=== PATIENT | female | born 1945 | race Caucasian/White ===

== ENCOUNTER 2018-02-28 12:27 | Inpatient (IN) ==
[2018-02-28 13:43] LABS: Basophils % 0.4 %; Eosinophils % 0.2 %; Hematocrit 40.9 % (35.3-44.9); Immature Granulocytes % 0.2 % (0-4); Lymphocytes # 1.3 K/mcL (0.6-4.6); Lymphocytes % 15.8 %; Mean Corpuscular HGB Conc 34.2 g/dL (31.6-35.5); Mean Corpuscular Hemoglobin 28.4 pg (28.0-33.3); Mean Platelet Volume 8.4 fL (9.4-12.4); Monocytes # 1.1 K/mcL (0.0-1.3); Monocytes % 13.5 %; Neutrophils # 5.6 K/mcL (1.6-8.9); Platelet Count 399 K/mcL (140-400); Red Blood Count 4.93 M/mcL (3.82-4.97); Red Cell Distribution Width 14.9 % (11.5-14.5); Segmented Neutrophils % 69.9 %
[2018-02-28 14:01] LABS: Alanine Aminotransferase 7 Units/L (7-52); Albumin 3.2 g/dL (3.5-5.7); Albumin/Globulin Ratio 1.2 (1.1-2.2); Alkaline Phosphatase 78 Units/L (34-104); Aspartate Amino Transferase 11 Units/L (13-39); BUN/Creatinine Ratio 22 (6-26); Bilirubin,Direct 0.1 mg/dL (0.0-0.2); Bilirubin,Indirect 0.4 mg/dL (0.0-1.2); Bilirubin,Total 0.5 mg/dL (0.3-1.0); Blood Urea Nitrogen 17 mg/dL (8-23); Calcium 8.6 mg/dL (8.6-10.3); Carbon Dioxide 25 mEq/L (23-29); Chloride 104 mEq/L (98-107); Globulin 2.7 g/dL (2.4-3.5); Glucose 100 mg/dL (70-105); Lipase 5 Units/L (11-82); Osmolality,Calculated 286 (280-300); Potassium 3.1 mEq/L (3.5-5.1); Sodium 137 mEq/L (136-145); Total Protein 5.9 g/dL (6.4-8.9); eGFR For Non-African Americans > 60 (> 60)
[2018-02-28] MEDS ORDERED: *HR* FentaNYL (PF) 100 MCG/2 ML VIAL IVP ONE ×2 (15:37→19:43)
[2018-02-28] MEDS ORDERED: 0.9 % Sodium Chloride 1,000 ML IVC ONE (15:37)
[2018-02-28] MEDS ORDERED: Ondansetron 4 MG/2 ML VIAL IVP ONE (15:37)
--- NOTE | 2018-02-28 15:44 | Emergency Department Note ---
Disposition Clinical Impression: Large bowel obstruction, Hypokalemia Disposition: Admitted As Inpatient Condition: Good Abdominal Pain HPI - General Chief Complaint: ED Abdominal Pain Stated Complaint: vomiting Time Seen by Provider: 02/28/18 15:23 Source: patient Mode of arrival: private vehicle Limitations: no limitations Nursing Notes Reviewed: Yes Vital Signs Reviewed: Yes - History of Present Illness HPI Narrative: 72-year-old female prior history of hypertension, arthritis with a prior surgical history of cholecystectomy, appendectomy, hysterectomy, bowel resection secondary to perforation from colonoscopy who presents to the ER with a chief complaint of nausea vomiting and abdominal pain. Patient reports her pain started roughly 2 weeks ago. She localizes it to her umbilicus and right side. States that it hurt for 4-5 days when she was having diarrhea and vomiting and started to improve. She reports it worsened and over the last 5 days she has had bilious emesis as well as no bowel movement. She reports that she is unable to keep down her medications. States she has had no appetite. No history of bowel obstruction in the past. No fevers. No dysuria or hematuria. No chest pain or shortness of breath. No other complaints. Pt Subjective Complaint: abdominal pain Onset (ago): week(s) Consistency: intermittent Location: RLQ, suprapubic Pain Severity: moderate Pain Scale: 0 Quality: cramping Radiation: none Migration to: no migration Improves with: nothing Worsens with: nothing Associated symptoms: Reports: nausea, vomiting, diarrhea. Denies: fever, dysuria, hematuria Treatments prior to arrival: none - Related Data Allergies Allergy/AdvReac Type Severity Reaction Status Date / Time No Known Allergies Allergy Verified 08/30/15 13:20 All systems ED: reviewed and negative except as stated. Constitutional: Denies: fever Cardiovascular: Denies: chest pain Respiratory: Denies: dyspnea Gastrointestinal: Reports: abdominal pain, nausea, vomiting. Denies: diarrhea, constipation Genitourinary: Denies: dysuria, hematuria Abdominal Pain PMH - Past Medical History Medical history: Reports: arthritis, hypertension Female Surgical History: Reports: appendectomy, cholecystectomy, hysterectomy Psychiatric history: Reports: no psych history - Social History Smoking status: Never smoker Physical Exam - General Limitations: no limitations General appearance: alert, in no apparent distress - Head Head exam: atraumatic, normocephalic - Eye Eye exam: Present: normal appearance - ENT ENT exam: normal exam - Neck Neck exam: Present: normal inspection - Chest Chest inspection: Present: normal inspection, symmetric chest wall rise - Respiratory Respiratory exam: Present: normal lung sounds bilaterally - Cardiovascular Cardiovascular exam: Present: regular rate, normal rhythm, normal heart sounds - Abdominal Exam Abdominal exam: Present: soft, tenderness (Patient has periumbilical as well as suprapubic and right lower quadrant tenderness.), distention. Absent: guarding , rigidity - Extremities Exam Extremities exam: Present: normal inspection, full ROM - Expanded Upper Extremity Exam Shoulder exam: Present: normal inspection, full ROM Arm exam: Present: normal inspection, full ROM Elbow exam: Present: normal inspection, full ROM Forearm/Wrist exam: Present: normal inspection, full ROM Hand exam: Present: normal inspection, full ROM - Expanded Lower Extremity Exam Hip/Pelvis exam: Present: normal inspection, full ROM Upper leg exam: Present: normal inspection, full ROM Knee exam: Present: normal inspection, full ROM Lower leg exam: Present: normal inspection, full ROM Ankle exam: Present: normal inspection, full ROM Foot/toe exam: Present: normal inspection, full ROM - Skin Skin exam: Present: warm, dry Course Course Narrative: Patient seen and examined. Vital signs reviewed. concern for potential bowel obstruction given her symptomatology. Labs reviewed prior to evaluation. Plan to add on coagulation studies, CT abdomen and pelvis as well as fluids, analgesics and antiemetics. - Reevaluation(s) Reevaluation #1: Discussed results of imaging labs with the patient. Discussed that she would need an NG tube for decompression. Patient in agreement. Plan to speak with surgery. - Consultations Consultation #1: I spoke with the on-call surgeon Dr. Braden. Discussed the patient's history, exam, labs, imaging as well as current interventions. He reviewed the imaging and will be down to see the patient. Time: 17:06 Vital Signs Temperature 98.6 F 02/28/18 12:29 Pulse Rate 89 02/28/18 12:29 Respiratory Rate 16 02/28/18 12:29 Blood Pressure 146/86 02/28/18 12:29 O2 Sat by Pulse Oximetry 97 02/28/18 12:29 Temperature 98.6 F 02/28/18 12:29 Pulse Rate 125 02/28/18 21:20 Respiratory Rate 18 02/28/18 21:20 Blood Pressure 143/99 02/28/18 21:20 O2 Sat by Pulse Oximetry 94 02/28/18 21:21 Oxygen Delivery Oxygen Delivery Room Air Abdominal Pain - MDM Narrative Medical decision making narrative: 72-year-old female with abdominal pain and emesis and constipation for several days. Extensive prior surgical history. Imaging reviewed revealing large bowel obstruction. No acute derangements and labs with the exception of mild hypokalemia which was replaced here. Case discussed with surgery. NG tube ordered. Admit for further management. - Lab Data Lab results reviewed: Yes I reviewed the patient's lab results. Result diagrams: 02/28/18 13:16 02/28/18 13:16 Lab Results 02/28/18 02/28/18 02/28/18 Range/Units 13:16 13:16 13:16 WBC 8.0 (4.3-11.1) K/mcL RBC 4.93 (3.82-4.97) M/mcL Hgb 14.0 (11.5-15.4) g/dL Hct 40.9 (35.3-44.9) % MCV 83.0 (83.0-100.0) fL MCH 28.4 (28.0-33.3) pg MCHC 34.2 (31.6-35.5) g/dL RDW 14.9 H (11.5-14.5) % Plt Count 399 (140-400) K/mcL MPV 8.4 L (9.4-12.4) fL Immature Gran % 0.2 (0-4) % Seg Neutrophils % 69.9 % Lymphocytes % 15.8 % Monocytes % 13.5 % Eosinophils % 0.2 % Basophils % 0.4 % Neutrophils # 5.6 (1.6-8.9) K/mcL Lymphocytes # 1.3 (0.6-4.6) K/mcL Monocytes # 1.1 (0.0-1.3) K/mcL Eosinophils # 0.0 (0.0-0.6) K/mcL Basophils # 0.0 (0.0-0.2) K/mcL PT 14.3 H (9.4-12.1) Seconds INR 1.3 Sodium 137 (136-145) mEq/L Potassium 3.1 L (3.5-5.1) mEq/L Chloride 104 (98-107) mEq/L Carbon Dioxide 25 (23-29) mEq/L BUN 17 (8-23) mg/dL Creatinine 0.77 (0.60-1.20) mg/dL Est GFR ( Amer) > 60 (> 60) Est GFR (Non-Af Amer) > 60 (> 60) BUN/Creatinine Ratio 22 (6-26) Glucose 100 (70-105) mg/dL Calculated Osmolality 286 (280-300) Calcium 8.6 (8.6-10.3) mg/dL Total Bilirubin 0.5 (0.3-1.0) mg/dL Direct Bilirubin 0.1 (0.0-0.2) mg/dL Indirect Bilirubin 0.4 (0.0-1.2) mg/dL AST 11 L (13-39) Units/L ALT 7 (7-52) Units/L Alkaline Phosphatase 78 (34-104) Units/L Serum Total Protein 5.9 L (6.4-8.9) g/dL Albumin 3.2 L (3.5-5.7) g/dL Globulin 2.7 (2.4-3.5) g/dL Albumin/Globulin Ratio 1.2 (1.1-2.2) Lipase 5 L (11-82) Units/L - Radiology Data Radiology results reviewed: Yes I reviewed the patient's radiology results. Abdomen/Pelvis CT 02/28/18 15:24 IMPRESSION: 1. Large bowel obstruction with a transition point noted near the sigmoid colon. This may be related to a stricture versus mass. 2. Hiatal hernia. D/ / 02/28/2018 17:30:13 Gabo Westbrook MD / [facility] Interpreting Provider: Gabo Westbrook MD Attestation Statement - Attestation Attestation: I examined this patient and my medical decision-making was reviewed with the Resident Physician. I agree with the documented findings, disposition and treatment plan as described except to the extent set forth below. Patient presents with bowel obstruction. She is vomiting. She has no findings of peritonitis at this time. We did attempt to place an NG tube but due to her significant gag reflex this was not obtainable. We did attempt multiple topical analgesics as well as anxyolysis. She could still not tolerate NG placement. Surgical consultation was placed. The patient will be admitted for further management.
[2018-02-28 15:55] LABS: INR 1.3; Prothrombin Time 14.3 Seconds (9.4-12.1)
[2018-02-28] MEDS ORDERED: Tetracaine/Benzocaine/Butamben 200MG/SPRAY (100SPY/BOT) MM ONE (17:01)
[2018-02-28] MEDS ORDERED: GI Cocktail 40 ML EACH PO ONE (17:54)
[2018-02-28] MEDS ORDERED: Albuterol 2.5 MG/3 ML NEBULIZER IH ONE (17:57)
[2018-02-28] MEDS ORDERED: *HR* LORazepam 2 MG/ML VIAL ONE (18:21)
[2018-02-28] MEDS ORDERED: 0.9 % Sodium Chloride 1,000 ML IVC SCH (23:15)
[2018-02-28] MEDS: Ondansetron 4 MG/2 ML VIAL IVP PRN (23:46)
[2018-02-28] MEDS: *HR* OxyCODONE/APAP 10/325 TABLET PO PRN (23:46)
[2018-03-01] MEDS: *HR* OxyCODONE/APAP 10/325 TABLET PO PRN ×2 (00:02→06:07)
[2018-03-01] MEDS: *HR* OxyCODONE Oral Soln 5 MG/5 ML UD.LIQ PO PRN ×2 (02:53→12:05)
[2018-03-01] MEDS: Ondansetron 4 MG/2 ML VIAL IVP PRN ×2 (05:47→11:05)
[2018-03-01 07:31] LABS: Basophils % 0.2 %; Eosinophils % 0.2 %; Hematocrit 40.7 % (35.3-44.9); Immature Granulocytes % 0.7 % (0-4); Lymphocytes # 1.3 K/mcL (0.6-4.6); Lymphocytes % 15.2 %; Mean Corpuscular HGB Conc 34.4 g/dL (31.6-35.5); Mean Corpuscular Hemoglobin 28.7 pg (28.0-33.3); Mean Corpuscular Volume 83.4 fL (83.0-100.0); Mean Platelet Volume 8.2 fL (9.4-12.4); Monocytes # 1.2 K/mcL (0.0-1.3); Monocytes % 14.1 %; Neutrophils # 5.9 K/mcL (1.6-8.9); Platelet Count 383 K/mcL (140-400); Red Blood Count 4.88 M/mcL (3.82-4.97); Red Cell Distribution Width 15.3 % (11.5-14.5); Segmented Neutrophils % 69.6 %
--- NOTE | 2018-03-01 07:43 | General Surgery Consult Note ---
<Chase Reyes - Last Filed: 03/01/18 08:45> Date of Encounter: 03/01/18 Time of Encounter: 18:00 Assessment and Plan (1) Large bowel obstruction Current Visit: Yes Status: Acute - Gastrograffin enema planned for tomorrow morning if patient does not improve overnight. - NPO - IVF - Serial abdominal exams - Pain management per primary teams reccomendations History of Present Illness History of present illness: Ms. Handley is a 72 year old female presenting with abdominal pain, nausea, vomiting, and abdominal distension for the past 24 hours. Her history is significant for a colon resection, where 30% of her colon was resected due to colon perforation during a routine colonoscopy. Pain is generalized in the abdomen. Patient reports last gas passed was 1-2 days ago, and bowel movement before incident was watery. Was offered NG tube to relieve symptoms, but was refused. CT abdomen at ED shows large bowel obstruction near the sigmoid colon. Past Med Surg Social Fam HX - Past Medical History Medical history: arthritis, hypertension Psychiatric history: no psych history - Past Surgical History Surgical History: appendectomy, cholecystectomy, hysterectomy Additional surgical history: tubalplasty, perforated bowel repair, bowel resection. - Social History Smoking Status: Never smoker Smokeless Tobacco Status: No Alcohol use: occasionally Drug use: none Medications and Allergies HYDROcodone/Acet 7.5/325 mg [[place] 7.5-325 mg] 1 tab PO Q4H 02/28/18 [History] Meloxicam [Meloxicam] 15 mg PO DAILY PRN 02/28/18 [History] Metoprolol [Lopressor] 25 mg PO BID 02/28/18 [History] 3 Allergy/AdvReac Type Severity Reaction Status Date / Time No Known Allergies Allergy Verified 08/30/15 13:20 Review of Systems All systems PM: The remainder of the systems were reviewed and are negative - Constitutional as per HPI General Surgery Exam Initial Vital Signs Temp Pulse Resp BP Pulse Ox 98.6 F 89 16 146/86 97 02/28/18 12:29 02/28/18 12:29 02/28/18 12:29 02/28/18 12:29 02/28/18 12:29 - Abdomen Abdomen general surgery: Present: bowel sounds present, soft, non tender Exam Initial Vital Signs Temp Pulse Resp BP Pulse Ox 98.6 F 89 16 146/86 97 02/28/18 12:29 02/28/18 12:29 02/28/18 12:02/28/18 12:02/28/18 12:29 Results - Labs 03/01/18 07:11 03/01/18 07:11 Abnormal lab results RDW 14.9 % (11.5-14.5) H 02/28/18 13:16 MPV 8.4 fL (9.4-12.4) L 02/28/18 13:16 PT 14.3 Seconds (9.4-12.1) H 02/28/18 13:16 Potassium 3.1 mEq/L (3.5-5.1) L 02/28/18 13:16 AST 11 Units/L (13-39) L 02/28/18 13:16 Serum Total Protein 5.9 g/dL (6.4-8.9) L 02/28/18 13:16 Albumin 3.2 g/dL (3.5-5.7) L 02/28/18 13:16 Lipase 5 Units/L (11-82) L 02/28/18 13:16 All other labs normal. Consult Discharge Plan - Plan Referrals: Concha Rodriguez, DO [Primary Care Provider] - <Cristian Braden - Last Filed: 03/01/18 12:01> Date of Encounter: 02/28/18 Review of Systems All systems PM: The remainder of the systems were reviewed and are negative General Surgery Exam Initial Vital Signs Temp Pulse Resp BP Pulse Ox 98.6 F 89 16 146/86 97 02/28/18 12:02/28/18 12:02/28/18 12:02/28/18 12:29 02/28/18 12:29 Exam Initial Vital Signs Temp Pulse Resp BP Pulse Ox 98.6 F 89 16 146/86 97 02/28/18 12:29 02/28/18 12:02/28/18 12:02/28/18 12:29 02/28/18 12:29 Results - Labs 03/01/18 07:11 03/01/18 07:11 Abnormal lab results RDW 15.3 % (11.5-14.5) H 03/01/18 07:11 MPV 8.2 fL (9.4-12.4) L 03/01/18 07:11 PT 14.3 Seconds (9.4-12.1) H 02/28/18 13:16 Potassium 3.1 mEq/L (3.5-5.1) L 03/01/18 07:11 Carbon Dioxide 20 mEq/L (23-29) L 03/01/18 07:11 Glucose 120 mg/dL (70-105) H 03/01/18 07:11 Calcium 8.5 mg/dL (8.6-10.3) L 03/01/18 07:11 AST 11 Units/L (13-39) L 02/28/18 13:16 Serum Total Protein 5.9 g/dL (6.4-8.9) L 02/28/18 13:16 Albumin 3.2 g/dL (3.5-5.7) L 02/28/18 13:16 Lipase 5 Units/L (11-82) L 02/28/18 13:16 Diabetes panel 03/01/18 Range/Units 07:11 Sodium 138 (136-145) mEq/L Potassium 3.1 L (3.5-5.1) mEq/L Chloride 107 (98-107) mEq/L Carbon Dioxide 20 L (23-29) mEq/L BUN 17 (8-23) mg/dL Creatinine 0.76 (0.60-1.20) mg/dL Glucose 120 H (70-105) mg/dL Calcium 8.5 L (8.6-10.3) mg/dL Calcium panel 03/01/18 Range/Units 07:11 Calcium 8.5 L (8.6-10.3) mg/dL Pituitary panel 03/01/18 Range/Units 07:11 Sodium 138 (136-145) mEq/L Potassium 3.1 L (3.5-5.1) mEq/L Chloride 107 (98-107) mEq/L Carbon Dioxide 20 L (23-29) mEq/L BUN 17 (8-23) mg/dL Creatinine 0.76 (0.60-1.20) mg/dL Glucose 120 H (70-105) mg/dL Calcium 8.5 L (8.6-10.3) mg/dL Adrenal panel 03/01/18 Range/Units 07:11 Sodium 138 (136-145) mEq/L Potassium 3.1 L (3.5-5.1) mEq/L Chloride 107 (98-107) mEq/L Carbon Dioxide 20 L (23-29) mEq/L BUN 17 (8-23) mg/dL Creatinine 0.76 (0.60-1.20) mg/dL Glucose 120 H (70-105) mg/dL Calcium 8.5 L (8.6-10.3) mg/dL All other labs normal. - Attending Attestation I examined this patient and my medical decision-making was reviewed with the Resident Physician. I agree with the documented findings, disposition and treatment plan as described except to the extent set forth below. The patient was seen and evaluated with rest and in the emergency room. I personally reviewed the CAT scan films. She does have dilated colon and proximal small bowel loops. The transition point appears to be sigmoid colon. If indeed she had a sigmoid colectomy this would be the level of the anastomosis. If she is unable to pass any stool or flatus by tomorrow morning we will obtain a Gastrografin enema to assess the degree of stenosis. If she is completely obstructed Haider's procedure will be necessary. If she is not completely obstructed I may be able to use a colonoscope and decompressed proximal colon. Continue IV hydration. It is noted that the patient did not tolerate nasogastric tube placement and refused nasogastric tube Cristian Braden MD FACS
[2018-03-01 07:48] LABS: BUN/Creatinine Ratio 22 (6-26); Blood Urea Nitrogen 17 mg/dL (8-23); Calcium 8.5 mg/dL (8.6-10.3); Carbon Dioxide 20 mEq/L (23-29); Chloride 107 mEq/L (98-107); Glucose 120 mg/dL (70-105); Osmolality,Calculated 289 (280-300); Potassium 3.1 mEq/L (3.5-5.1); Sodium 138 mEq/L (136-145); eGFR For Non-African Americans > 60 (> 60)
--- NOTE | 2018-03-01 10:30 | General Surgery Progress Note ---
<Chase Reyes - Last Filed: 03/01/18 10:33> Date of Encounter: 03/01/18 Time of Encounter: 07:30 - Assessment and Plan (1) Large bowel obstruction Current Visit: Yes Status: Acute - reassess patient after gastrograffin enema - NPO - IVF - Serial abdominal exams - Continue pain management recommendations Subjective Patient reports: still having pain, no flatus, nausea, vomiting Narrative: Patient reports intense pain overnight and acute distress. She is also experiencing nauseau, vomiting, and distension. SHe rates her pain as a 6/10 and nonradiating. She still does not want to have an NG tube. Objective Vital Signs - Last 8 Hours Temp Pulse Resp BP Pulse Ox 03/01/18 07:45 98.9 F 104 18 144/83 92 Intake and Output 02/28/18 03/01/18 03/01/18 23:59 07:59 15:59 Intake Total 0 / 1100 0 / 0 Output Total 0 / 0 0 / 0 Balance 0 / 1100 0 / 0 Intake: Oral 0 / 0 0 / 0 Output: Urine 0 / 0 0 / 0 Other: # Voids 1 # Urine Diapers 1 - General physical appearance well developed, well nourished, severe distress - Respiratory normal expansion, normal respiratory effort - Cardiovascular Cardiovascular exam: Present: RRR - Abdomen Abdomen: Present: distended Abdominal Tenderness: diffusely - Neurologic CN 2-12 grossly intact - Psychiatric oriented to time, oriented to person, oriented to place - Labs 03/01/18 07:11 03/01/18 07:11 Diabetes panel 03/01/18 Range/Units 07:11 Sodium 138 (136-145) mEq/L Potassium 3.1 L (3.5-5.1) mEq/L Chloride 107 (98-107) mEq/L Carbon Dioxide 20 L (23-29) mEq/L BUN 17 (8-23) mg/dL Creatinine 0.76 (0.60-1.20) mg/dL Glucose 120 H (70-105) mg/dL Calcium 8.5 L (8.6-10.3) mg/dL Calcium panel 03/01/18 Range/Units 07:11 Calcium 8.5 L (8.6-10.3) mg/dL Pituitary panel 03/01/18 Range/Units 07:11 Sodium 138 (136-145) mEq/L Potassium 3.1 L (3.5-5.1) mEq/L Chloride 107 (98-107) mEq/L Carbon Dioxide 20 L (23-29) mEq/L BUN 17 (8-23) mg/dL Creatinine 0.76 (0.60-1.20) mg/dL Glucose 120 H (70-105) mg/dL Calcium 8.5 L (8.6-10.3) mg/dL Adrenal panel 03/01/18 Range/Units 07:11 Sodium 138 (136-145) mEq/L Potassium 3.1 L (3.5-5.1) mEq/L Chloride 107 (98-107) mEq/L Carbon Dioxide 20 L (23-29) mEq/L BUN 17 (8-23) mg/dL Creatinine 0.76 (0.60-1.20) mg/dL Glucose 120 H (70-105) mg/dL Calcium 8.5 L (8.6-10.3) mg/dL Consult Discharge Plan - Plan Referrals: Concha Rodriguez DO [Primary Care Provider] - <Cristian Braden - Last Filed: 03/01/18 14:58> Date of Encounter: 03/01/18 Objective Vital Signs - Last 8 Hours Temp Pulse Resp BP Pulse Ox 03/01/18 07:45 98.9 F 104 18 144/83 92 Intake and Output 02/28/18 03/01/18 03/01/18 23:59 07:59 15:59 Intake Total 0 / 1100 0 / 0 Output Total 0 / 0 0 / 0 Balance 0 / 1100 0 / 0 Intake: Oral 0 / 0 0 / 0 Output: Urine 0 / 0 0 / 0 Other: # Voids 1 # Urine Diapers 1 - Labs 03/01/18 07:11 03/01/18 07:11 Diabetes panel 03/01/18 Range/Units 07:11 Sodium 138 (136-145) mEq/L Potassium 3.1 L (3.5-5.1) mEq/L Chloride 107 (98-107) mEq/L Carbon Dioxide 20 L (23-29) mEq/L BUN 17 (8-23) mg/dL Creatinine 0.76 (0.60-1.20) mg/dL Glucose 120 H (70-105) mg/dL Calcium 8.5 L (8.6-10.3) mg/dL Calcium panel 03/01/18 Range/Units 07:11 Calcium 8.5 L (8.6-10.3) mg/dL Pituitary panel 03/01/18 Range/Units 07:11 Sodium 138 (136-145) mEq/L Potassium 3.1 L (3.5-5.1) mEq/L Chloride 107 (98-107) mEq/L Carbon Dioxide 20 L (23-29) mEq/L BUN 17 (8-23) mg/dL Creatinine 0.76 (0.60-1.20) mg/dL Glucose 120 H (70-105) mg/dL Calcium 8.5 L (8.6-10.3) mg/dL Adrenal panel 03/01/18 Range/Units 07:11 Sodium 138 (136-145) mEq/L Potassium 3.1 L (3.5-5.1) mEq/L Chloride 107 (98-107) mEq/L Carbon Dioxide 20 L (23-29) mEq/L BUN 17 (8-23) mg/dL Creatinine 0.76 (0.60-1.20) mg/dL Glucose 120 H (70-105) mg/dL Calcium 8.5 L (8.6-10.3) mg/dL - Attending Attestation I examined this patient and my medical decision-making was reviewed with the Resident Physician. I agree with the documented findings, disposition and treatment plan as described except to the extent set forth below. The patient has not been able to pass any flatus or bowel movement through the evening. We will order a Gastrografin enema to rule out rectosigmoid obstruction. If there is obstruction at this level Haider's procedure will be required for colon obstruction Cristian Braden MD FACS
--- NOTE | 2018-03-01 13:36 | Event Note ---
Date of Encounter: 03/01/18 Time of Encounter: 13:20 The barium enema demonstrates a critical area of stenosis and possible fistula at the recto-sigmoid junction. Colon obstruction at this point. I personally reviewed the films with the radiologist and discussed the findings with the patient. We will proceed with Haider's procedure today. Cristian Braden MD FACS
--- NOTE | 2018-03-01 15:17 | Anesthesia Evaluation PreOp ---
Date of Encounter: 03/01/18 Time of Encounter: 15:15 - Past History Planned Operation: Haider's Pouch Cardiac History: HTN Pulmonary History: Denies Any Significant HX DISBURSING AGENT History: Denies Any Significant HX Other Medical History: Other (Arthritis) Anesthesia History: No Prior Anesthetic Complications : No Alcohol Use: occasionally Drug use: none Medications and Allergies HYDROcodone/Acet 7.5/325 mg [[place] 7.5-325 mg] 1 tab PO Q4H 02/28/18 [History] Meloxicam [Meloxicam] 15 mg PO DAILY PRN 02/28/18 [History] Metoprolol [Lopressor] 25 mg PO BID 02/28/18 [History] 3 Allergy/AdvReac Type Severity Reaction Status Date / Time No Known Allergies Allergy Verified 08/30/15 13:20 - Meds/Allergy Pre-op Review Medications Reviewed: Yes Allergies Reviewed: Yes Beta Blockers on Current Med List: No Anesthesia Results - Labs 03/01/18 07:11 03/01/18 07:11 Anesthesia Exam O2 Sat O2 Sat by Pulse Oximetry 92 O2 Sat by Pulse Oximetry 94 O2 Sat by Pulse Oximetry 96 O2 Sat by Pulse Oximetry 94 O2 Sat by Pulse Oximetry 94 O2 Sat by Pulse Oximetry 99 O2 Sat by Pulse Oximetry 96 Vital Signs Temp Pulse Resp BP Pulse Ox 98.6 F 89 16 146/86 97 02/28/18 12:29 02/28/18 12:29 02/28/18 12:29 02/28/18 12:29 02/28/18 12:29 Height: 5'2 Weight: 241 lbs NPO (# of Hours): MN Pain Scale: 0 - HEENT Pupil (Motor): Pupils equal, EOMI Mallampati: III Teeth: Normal Oral Opening: Less than or equal to 3 - DISBURSING AGENT LOC: Oriented DISBURSING AGENT Motor: Normal RUE, Normal LUE, Normal RLE, Normal LLE, Normal Face DISBURSING AGENT Sensory: Normal: RUE, LUE, RLE, LLE, Face - Cardiac Rhythm: Regular Murmur: None JVD: No Carotid Bruit: No - Pulmonary Breath Sounds: bilateral Clear Respiratory Effort: Symmetrical Anesthesia Assess/Plan ASA Score: 2, E Modified Aubrey Scale for Level of Consciousness: Cooperative, oriented, and tranquil Anesthetic Plan: General Monitoring Plan: Standard Monitors Recovery Plan: PACU (Discussed GA, agrees to proceed)
[2018-03-01] MEDS ORDERED: Dexamethasone 4 MG/ML VIAL ONE (15:22)
[2018-03-01] MEDS ORDERED: *HR* Propofol 200 MG/20 ML VIAL IVP ONE ×2 (15:22→20:02)
[2018-03-01] MEDS ORDERED: *HR* FentaNYL (PF) 100 MCG/2 ML VIAL ONE (15:22)
[2018-03-01] MEDS ORDERED: *HR* Rocuronium Bromide 50 MG/5 ML VIAL ONE ×2 (15:22→16:44)
[2018-03-01] MEDS ORDERED: Lidocaine -MPF 2% 2 ML VIAL ONE ×2 (15:22→15:46)
[2018-03-01] MEDS ORDERED: *HR* Morphine 10 MG/ML VIAL ONE (15:22)
[2018-03-01] MEDS ORDERED: Ondansetron 4 MG/2 ML VIAL ONE (15:22)
[2018-03-01] MEDS ORDERED: Acetaminophen IV 1,000 MG/100 ML INFUS..BTL ONE (15:27)
[2018-03-01] MEDS ORDERED: CefOXitin 1,000 MG VIAL ONE (15:30)
[2018-03-01] MEDS ORDERED: CefOXitin 2,000 MG VIAL ONE (15:39)
[2018-03-01] MEDS ORDERED: *HR* PHENYLEPHRINE 1,000 MCG/10 ML SYRINGE IVP ONE (16:13)
[2018-03-01] MEDS ORDERED: *HR* Morphine 2 MG/ML SYRINGE IVP PRN (16:17)
[2018-03-01] MEDS ORDERED: cefOXitin 2,000 MG in Water for inj. (sterile) 20 ML 20 ML IVP ONE (16:20)
[2018-03-01] MEDS ORDERED: *HR* Heparin 5,000 UNIT/ML VIAL SQ SCH (18:00)
[2018-03-01] MEDS ORDERED: Povidone-Iodine 28.4 GM TUBE TP ONE (18:24)
[2018-03-01] MEDS ORDERED: Neostigmine Methylsulfate 3 MG/3 ML SYRINGE ONE (18:24)
--- NOTE | 2018-03-01 19:10 | Operative Note ---
Date of procedure: 03/01/18 Pre-op diagnosis: Colon obstruction Post-op diagnosis: other (#1 colon obstruction secondary to perforated diverticular disease. #2 pelvic abscess #3 colovaginal fistula) Procedure: #1 low anterior resection of the colon #2 drainage of pelvic abscess #3 closure of colovaginal fistula #4 colostomy #5 repair of large incisional hernia Anesthesia: HENRYA Surgeon: Cristian Braden Was there an head start assistant teacher present: Yes Ripsaw Grader: Mary Merlos Estimated blood loss (cc): 250 Specimen: Low anterior resection with colon Condition: stable Disposition: PACU Procedure in Detail: After informed consent the patients taking major operative suite placed supine position given adequate general endotracheal anesthesia. Above the A Moore catheter was placed. The abdomen was prepped and draped in sterile fashion utilizing ChloraPrep standard draping techniques. Timeout was taken and patient was identified. The patient had a very large incisional hernia in the midline. We had no other choice but to go directly through the incisional hernia and repair this with [place] tissue at the end of the procedure. We entered the incisional hernia sac and reduce the contents. I performed lysis of adhesions for about 20 minutes on the anterior abdominal wall and pelvis. The left colon was massively dilated. Bookwalter retractor was placed I dissected the dome of the bladder away from the colon and I dissected the lateral attachments to the colon. I could not proceed any further with the colon so massively dilated without risk of perforation area I decided to decompress the colon. I placed a pursestring suture in the distal sigmoid colon and inserted a sump pump. I removed 1.3 L of stool from the left side of the colon and the rectum. Once this was done I tied the pursestring stitch. I was now able to dissected laterally on either side of the rectosigmoid junction. I was able to divide the colon with a TA 90 stapler. The proximal colon was retracted out of the field and I now worked on the distal mesocolon. This was carefully dissected on both sides the anterior portion of the colon involving the neck of the bladder and vagina was densely adherent. Several times during the dissection there was stool mixed with mucus. This was not in the lumen of the colon. This was a abscess or fistula as it turned out involving the apex the vagina. Once the anterior dissection was complete in the vagina was reflected off the sigmoid colon and rectum I was able to palpate the rockhard area of the sigmoid colon. This was about 8 cm in length and abruptly ended just above the area where the fistula informed to the vagina. I divided off the vagina from the rectum and closed the vagina with interrupted Vicryl stitches. The neck of the bladder and dome the bladder was carefully inspected there was no evidence of fistula. I did identify both the right and left ureter. Both were intact. I divided the rectosigmoid with a contour stapler. The apex of the rectum was secured with 3 stitches of Prolene. I secured to the right and lateral sidewalls and then I placed a Prolene loop in the middle of the staple line so that this could be identified at a later time. The pelvis was irrigated with copious amounts of antibiotic containing solution. Total blood loss was about 250 mL. I inspected the ureters neck of the bladder and vaginal repair. All were intact. This area of abscess and fistula was completely debrided. The rectum was secured at the inlet of the pelvis for future identification. I selected a area lateral on the anterior abdominal wall and made an ostomy opening. He notices far lateral this is still trans-rectus. The colon was brought out through the anterior abdominal wall after some mobilization from its lateral attachments. The colon was well vascularized and quite large. Attention was then turned to closing the midline. I mobilize the rectus muscles on the right and left side by dividing the overlying tissue and resecting the hernia sac. I then reapproximated the rectus muscle with interrupted 0 Nurolon stitches along the entire midline. Tension was tired than normal but acceptable. The subcutaneous tissues closed with interrupted 2- 0 Vicryl in 3 layers. The closure was done to obliterate deep space. The skin was closed with skin mikala. The skin mikala were protected with iodine ointment. The colostomy was then matured using 3-0 Vicryl. This gave an excellent technical result and the colostomy was well vascularized. She tolerated the procedure well and was transferred to recovery in stable condition
[2018-03-01] MEDS ORDERED: Albuterol 2.5 MG/3 ML NEBULIZER ONE (19:49)
[2018-03-01] MEDS ORDERED: Albuterol 2.5 MG/3 ML NEBULIZER IH ONE (19:53)
--- NOTE | 2018-03-01 20:33 | Anesthesia Progress Note ---
Date of Encounter: 03/01/18 Time of Encounter: 20:30 Anesthesia Note - Note Note: 03/01/18 20:30 Patient s/p Exploratory Lap, Anterior Resection, Haider's Pouch, was vomitting copiously preop. Performed rapid sequence incution with cricoid prssure and succesful intubation with glidescope. Post op, patient failed extubation, and re-intubated in PACU. Discussed with Dr Braden and ICU staff. Will consult Pulmonology.
--- NOTE | 2018-03-01 20:35 | Anesthesia Evaluation Post Op ---
Date of Encounter: 03/01/18 Time of Encounter: 20:40 - Vital Signs Vital Signs: Vital Signs/O2 Sat/Glucose, Most Current Temp Pulse Resp BP Pulse Ox 03/01/18 20:15 113 100/57 98 03/01/18 20:05 113 24 57/32 85 03/01/18 19:55 133 20 167/94 95 03/01/18 19:45 99.2 F 120 24 141/70 96 03/01/18 19:35 109 26 145/103 97 03/01/18 19:25 114 24 123/100 100 03/01/18 19:15 99.0 F 126 28 113/65 100 - Lungs Lungs: Clear Ascult./Percussion - Airway Airway: Non-obstructed - Cardiovascular Regular Rate - Mental Status Mental Status: Asleep without brisk response to light stimulation (Intubated) - Nausea Vomiting Nausea Vomiting: Unable to assess - Hydration Hydration: Unable to tolerate oral fluids - Discharge PostOp Status: Transfer Patient to floor (Patient taken to ICU intubated)
[2018-03-01] MEDS ORDERED: FentaNYL (PF) 1,000 MCG in 0.9 % Sodium Chloride 80 ML IVC SCH (20:45)
[2018-03-01] MEDS ORDERED: Lacri-Lube 3.5 GM TUBE BOTH EYES PRN (20:45)
[2018-03-01 20:58] LABS: ABG Base Excess -5 mEq/L (-2 to 3); ABG HCO3 23 mEq/L (21-27); ABG Oxygen Saturation 100 % (95-98); ABG PCO2 55 mmHg (35-45); ABG PH 7.24 pH Units (7.32-7.45); ABG PO2 222 mmHg (85-104); ABG TCO2 25 mEq/L (20-26); Blood Gas Modality VC; Blood Gas PEEP 5 cm H2O; Blood Gas Respiration Rate 14; Blood Gas VT 500 cc
[2018-03-01] MEDS ORDERED: Chlorhexidine Rinse 15 ML MOUTHWASH MM SCH (21:00)
[2018-03-01] MEDS ORDERED: 0.9 % Sodium Chloride 1,000 ML IVC SCH ×2 (22:43)
[2018-03-01] MEDS ORDERED: Ondansetron 4 MG/2 ML VIAL IVP PRN (22:43)
[2018-03-01] MEDS ORDERED: OXYCODONE Oral CONC 10 MG/0.5 ML ORAL.SYG SL PRN (22:43)
[2018-03-02] MEDS ORDERED: Ipratropium/Albuterol Neb 3 ML IH SCH
[2018-03-02] MEDS ORDERED: Lacri-Lube 3.5 GM TUBE BOTH EYES SCH
[2018-03-02] MEDS: cefOXitin 2,000 MG in Water for inj. (sterile) 20 ML 20 ML IVP SCH ×2 (00:28→08:52)
--- NOTE | 2018-03-02 02:55 | Pulmonology Consult Note ---
<Caden Mandel - Last Filed: 03/02/18 19:36> Date of Encounter: 03/02/18 Time of Encounter: 02:51 Assessment and Plan (1) Acute respiratory failure Current Visit: Yes Status: Acute Patient did fail extubation as when she she was extubated she had a difficult time breathing patient was unable to be suitable for BiPAP suicide to reintubate the patient. There was worry of from anesthesia the patient possibly could have aspirated before the procedure. Due to this they felt that given the patient intubated and transferred to the ICU on ventilator management would be in the patient's best interest. Patient was placed on the ventilator in the ICU initial blood gas was 7.24/55/222/23/25/100. Ventilator settings were changed to increase the rate to 18 and put the tidal volume at 500. We have the patient on the ventilator overnight and attempt CPAP trial and possible extubation in the morning if patient tolerates it. Patient is being sedated on propofol and fentanyl. Patient's blood pressure is stable. Patient is being treated with antibiotics after surgery will most likely cover patient aspiration pneumonia. If patient continues to worsen consider broadening antibiotics. Qualifiers: Respiratory failure complication: unspecified whether with hypoxia or hypercapnia Qualified Code(s): J96.00 - Acute respiratory failure, unspecified whether with hypoxia or hypercapnia (2) Aspiration pneumonia Current Visit: Yes Status: Acute There is possibility for aspiration pneumonia as patient was vomiting prior to intubation. Chest x-ray was not equivocal for having a aspiration pneumonia. Patient is on broad-spectrum antibiotics post surgery. If patient continues to have worsening respiratory status will consider broadening antibiotics We will monitor White blood cell count. Qualifiers: Aspiration pneumonia type: unspecified Laterality: unspecified laterality Lung location: unspecified part of lung Qualified Code(s): J69.0 - Pneumonitis due to inhalation of food and vomit (3) Large bowel obstruction Current Visit: Yes Status: Acute This is being managed by the surgical team. (4) DVT prophylaxis Current Visit: Yes Status: Acute This is being managed per the surgical team History of Present Illness Consult date: 03/02/18 Requesting physician: Dom Mcconnell Reason for consult: other (Ventilator management) Chief complaint: Abdominal pain History of present illness: 72-year-old female presented to the emergency department on 02/28/18 for abdominal pain. Patient was found to have possible bowel obstruction so was admitted to the surgical team for further evaluation. Surgical team did do a barium enema and Gastrografin studies which did show bowel obstruction. At that time surgery decided to take the patient to surgery on 03/01/[address] Braden did exploratory laparotomy, anterior resection, Haider's pouch. Patient was extubated while in the OR and move to PACU. In the PACU patient failed as she was having difficult time breathing and had to be reintubated in the PACU. Anesthesia did note that prior to intubation in the OR patient was vomiting copious amounts. There is worry for possible aspiration. Due to patient not being only extubated patient was transferred to the ICU for ventilator management. The ICU/pulmonary team was consult did for ventilator management. Past Med Surg Social Fam HX - Past Medical History Medical history: arthritis, hypertension Psychiatric history: no psych history - Past Surgical History Surgical History: appendectomy, cholecystectomy, hysterectomy Additional surgical history: tubalplasty, perforated bowel repair, bowel resection. - Social History Smoking Status: Never smoker Smokeless Tobacco Status: No Alcohol use: occasionally Drug use: none Medications and Allergies HYDROcodone/Acet 7.5/325 mg [Cary 7.5-325 mg] 1 tab PO Q4H 02/28/18 [History] Meloxicam [Meloxicam] 15 mg PO DAILY PRN 02/28/18 [History] Metoprolol [Lopressor] 25 mg PO BID 02/28/18 [History] 3 Allergy/AdvReac Type Severity Reaction Status Date / Time No Known Allergies Allergy Verified 08/30/15 13:20 ROS unobtainable: due to endotracheal tube, due to mental status All Systems: The remainder of the systems were reviewed and are negative Physical Examination Vital Signs: Vital Signs, Last 4 Hours Temp Pulse Resp BP Pulse Ox 03/02/18 02:00 96 18 88/74 99 03/02/18 01:00 93 18 83/62 99 03/02/18 00:48 18 81/59 98 03/02/18 00:23 98 03/02/18 00:00 98.8 F 97 18 102/70 99 03/01/18 23:16 18 83/62 99 03/01/18 23:00 96 18 83/62 98 General appearance: no acute distress, alert Eyes: nonicteric ENT: oropharynx moist Neck: supple Effort: normal Inspection: normal Auscultation: bilateral: rhonchi (Mild) Cardiovascular: regular rate and rhythm Gastrointestinal: normoactive bowel sounds, non-distended Extremities: no cyanosis, no edema, no clubbing Musculoskeletal: no deformities, ROM normal non-focal exam, pupils equal and round, motor strength normal and symmetric Ventilator Settings Ventilator Settings: Ventilator Settings, Last 8 Hours Ventilator Tidal Volume 500 Setting Ventilator Tidal Volume 500 Setting Ventilator Tidal Volume 500 Setting Ventilator Tidal Volume 500 Setting Ventilator Tidal Volume 500 Setting Ventilator Tidal Volume 500 Setting Ventilator Tidal Volume 500 Setting Ventilator Tidal Volume 500 Setting Ventilator Tidal Volume 500 Setting Ventilator Tidal Volume 500 Setting Ventilator Tidal Volume 500 Setting Ventilator Respiratory Rate 18 Setting Ventilator Respiratory Rate 18 Setting Ventilator Respiratory Rate 18 Setting Ventilator Respiratory Rate 18 Setting Ventilator Respiratory Rate 18 Setting Ventilator Respiratory Rate 14 Setting Ventilator Respiratory Rate 14 Setting Ventilator Respiratory Rate 14 Setting Ventilator Respiratory Rate 14 Setting Ventilator Respiratory Rate 14 Setting Ventilator Respiratory Rate 14 Setting Actual Respiratory Rate 18 Actual Respiratory Rate 18 Actual Respiratory Rate 18 Actual Respiratory Rate 18 Actual Respiratory Rate 18 Actual Respiratory Rate 14 Actual Respiratory Rate 14 Positive End Expiratory 5 Pressure Positive End Expiratory 5 Pressure Positive End Expiratory 5 Pressure Positive End Expiratory 5 Pressure Positive End Expiratory 5 Pressure Positive End Expiratory 5 Pressure Positive End Expiratory 5 Pressure Positive End Expiratory 5 Pressure Positive End Expiratory 5 Pressure Positive End Expiratory 5 Pressure Positive End Expiratory 5 Pressure Peak Inspiratory Airway 23 Pressure Peak Inspiratory Airway 23 Pressure Peak Inspiratory Airway 23 Pressure Peak Inspiratory Airway 23 Pressure Peak Inspiratory Airway 23 Pressure Peak Inspiratory Airway 23 Pressure Results - Laboratory Findings CBC and BMP: 03/02/18 13:21 03/02/18 13:21 ABG ABG pH 7.24 pH Units (7.32-7.45) L 03/01/18 20:55 ABG pCO2 55 mmHg (35-45) H 03/01/18 20:55 ABG pO2 222 mmHg (85-104) H 03/01/18 20:55 ABG O2 Saturation 100 % (95-98) H 03/01/18 20:55 PT/INR, D-dimer PT 14.3 Seconds (9.4-12.1) H 02/28/18 13:16 Abnormal lab findings: Abnormal lab results RDW 15.3 % (11.5-14.5) H 03/01/18 07:11 MPV 8.2 fL (9.4-12.4) L 03/01/18 07:11 PT 14.3 Seconds (9.4-12.1) H 02/28/18 13:16 ABG pH 7.24 pH Units (7.32-7.45) L 03/01/18 20:55 ABG pCO2 55 mmHg (35-45) H 03/01/18 20:55 ABG pO2 222 mmHg (85-104) H 03/01/18 20:55 ABG O2 Saturation 100 % (95-98) H 03/01/18 20:55 ABG Base Excess -5 mEq/L (-2 to 3) L 03/01/18 20:55 Potassium 3.1 mEq/L (3.5-5.1) L 03/01/18 07:11 Carbon Dioxide 20 mEq/L (23-29) L 03/01/18 07:11 Glucose 120 mg/dL (70-105) H 03/01/18 07:11 Calcium 8.5 mg/dL (8.6-10.3) L 03/01/18 07:11 AST 11 Units/L (13-39) L 02/28/18 13:16 Serum Total Protein 5.9 g/dL (6.4-8.9) L 02/28/18 13:16 Albumin 3.2 g/dL (3.5-5.7) L 02/28/18 13:16 Lipase 5 Units/L (11-82) L 02/28/18 13:16 - Diagnostic Findings Chest x-ray: report reviewed, image reviewed - Clinical Findings Intake & Output: Intake & Output 03/01/18 03/01/18 03/02/18 15:59 23:59 07:59 Intake Total 0 / 0 Output Total 350 / 350 Balance 0 / 0 -330 / -330 Consult Discharge Plan - Plan Referrals: Concha Rodriguez, DO [Primary Care Provider] - <Margarita Kang - Last Filed: 03/02/18 21:48> Date of Encounter: 03/02/18 All Systems: The remainder of the systems were reviewed and are negative Physical Examination Vital Signs: Vital Signs, Last 4 Hours Temp Pulse Resp BP Pulse Ox 03/02/18 21:00 114 12 90/49 92 03/02/18 20:00 113 12 97/85 93 03/02/18 19:51 98.2 F 03/02/18 19:23 114 03/02/18 19:00 114 12 95/76 93 03/02/18 18:00 112 12 94/58 94 Results - Laboratory Findings CBC and BMP: 03/02/18 13:21 03/02/18 13:21 ABG ABG pH 7.48 pH Units (7.32-7.45) H 03/02/18 04:48 ABG pCO2 28 mmHg (35-45) L 03/02/18 04:48 ABG pO2 82 mmHg (85-104) L 03/02/18 04:48 ABG O2 Saturation 97 % (95-98) 03/02/18 04:48 PT/INR, D-dimer PT 14.3 Seconds (9.4-12.1) H 02/28/18 13:16 Abnormal lab findings: Abnormal lab results WBC 27.3 K/mcL (4.3-11.1) H 03/02/18 13:21 MCH 27.8 pg (28.0-33.3) L 03/02/18 13:21 RDW 16.3 % (11.5-14.5) H 03/02/18 13:21 MPV 8.6 fL (9.4-12.4) L 03/02/18 13:21 Band Neutrophils % 12.0 % (0-4) H 03/02/18 13:21 Neutrophils # 24.0 K/mcL (1.6-8.9) H 03/02/18 13:21 Reactive Lymphocytes Present (Not Present) A 03/02/18 13:21 Toxic Granulation Present (Not Present) A 03/02/18 13:21 Polychromasia 1+ (Not Present) A 03/02/18 03:56 PT 14.3 Seconds (9.4-12.1) H 02/28/18 13:16 ABG pH 7.48 pH Units (7.32-7.45) H 03/02/18 04:48 ABG pCO2 28 mmHg (35-45) L 03/02/18 04:48 ABG pO2 82 mmHg (85-104) L 03/02/18 04:48 Chloride 112 mEq/L (98-107) H 03/02/18 13:21 BUN 35 mg/dL (8-23) H 03/02/18 13:21 Creatinine 2.14 mg/dL (0.60-1.20) H 03/02/18 13:21 Est GFR ( Amer) 28 (> 60) L 03/02/18 13:21 Est GFR (Non-Af Amer) 23 (> 60) L 03/02/18 13:21 Glucose 139 mg/dL (70-105) H 03/02/18 13:21 POC Glucose 125 mg/dL (70-99) H 03/02/18 11:34 Calculated Osmolality 304 (280-300) H 03/02/18 13:21 Calcium 8.2 mg/dL (8.6-10.3) L 03/02/18 13:21 AST 11 Units/L (13-39) L 03/02/18 13:21 Serum Total Protein 4.7 g/dL (6.4-8.9) L 03/02/18 13:21 Albumin 2.5 g/dL (3.5-5.7) L 03/02/18 13:21 Globulin 2.2 g/dL (2.4-3.5) L 03/02/18 13:21 Lipase 5 Units/L (11-82) L 02/28/18 13:16 - Clinical Findings Intake & Output: Intake & Output 03/02/18 03/02/18 03/02/18 07:59 15:59 23:59 Intake Total 450 / 450 1000 / 1000 Output Total 350 / 350 175 / 175 Balance 100 / 100 825 / 825 - Attending Attestation I saw and evaluated this patient and my medical decision-making was reviewed with the Resident Physician. I agree with the documented findings, disposition and treatment plan as described except to the extent set forth below. We independently had [id number] contact with the patient I spent 35 minutes of Critical Care time with this patient. It involved decision making of high complexity to assess, manipulate, and support vital organ system failure and/or to prevent further life threatening deterioration of the patient's condition. The time involved in the performance of separately reportable procedures was not counted toward critical care time. Patient seen and examined at bedside Labs, radiology, chart personally reviewed. Management was reviewed during multidisciplinary critical care rounds. MATERIAL HANDLER: Conscious fully awake following commands patient is ready for extubation Pulm: There is an acute hypoxic respiratory failure is due to postsurgery effect of anesthesia and opioids. Patient might have aspirated wound treated right now the symptoms worsen we can cover with broad-spectrum antibiotics patient has minimal VQ mismatch acceptable oxygenation and ventilation will extubated to nasal cannula and will continue to monitor her in the ICU for the day. Cards: His hemoglobin was stable no active signs of coronary FEN-GI: nil By mouth diet according to surgery Renal: labs and output reviewed ID: To continue antibiotics as per surgery will not start antibiotics for the aspiration event we will continue to monitor Heme/Onc: Prophylaxis according to surgery Endo: Glucose Monitored Integ/MSK: Skin Care per routine ICU Nursing Protocol to prevent ulcers. Lines: All lines examined without evidence of infection : Dispo: According to Primary team CODE: Full Code
[2018-03-02 04:31] LABS: Basophils % 0.2 %; Hematocrit 34.8 % (35.3-44.9); Immature Granulocytes % 0.6 % (0-4); Lymphocytes % 5.6 %; Mean Corpuscular HGB Conc 33.3 g/dL (31.6-35.5); Mean Corpuscular Hemoglobin 28.2 pg (28.0-33.3); Mean Corpuscular Volume 84.5 fL (83.0-100.0); Mean Platelet Volume 8.5 fL (9.4-12.4); Monocytes # 1.1 K/mcL (0.0-1.3); Monocytes % 6.1 %; Neutrophils # 16.1 K/mcL (1.6-8.9); Platelet Count 320 K/mcL (140-400); Red Blood Count 4.12 M/mcL (3.82-4.97); Red Cell Distribution Width 15.9 % (11.5-14.5); Segmented Neutrophils % 87.5 %
[2018-03-02 04:35] LABS: Hemoglobin 11.6 g/dL (11.5-15.4)
[2018-03-02 04:51] LABS: ABG Base Excess -2 mEq/L (-2 to 3); ABG HCO3 21 mEq/L (21-27); ABG Oxygen Saturation 97 % (95-98); ABG PCO2 28 mmHg (35-45); ABG PH 7.48 pH Units (7.32-7.45); ABG PO2 82 mmHg (85-104); ABG TCO2 22 mEq/L (20-26); Blood Gas Modality VC; Blood Gas PEEP 5 cm H2O; Blood Gas Respiration Rate 18; Blood Gas VT 500 cc
[2018-03-02 04:51] LABS: Potassium 3.8 mEq/L (3.5-5.1)
[2018-03-02 05:04] LABS: Platelet Estimate Normal (Normal); Polychromasia 1+ (Not Present)
[2018-03-02] MEDS: *HR* Heparin 5,000 UNIT/ML VIAL SQ SCH ×2 (06:12→16:41)
[2018-03-02] MEDS: Chlorhexidine Rinse 15 ML MOUTHWASH MM SCH ×2 (08:52→23:01)
[2018-03-02] MEDS: Ringers Solution, Lactated 1,000 ML IVC SCH ×2 (08:53→16:40)
[2018-03-02] MEDS: *HR* HYDROmorphone (PF) 1 MG/ML SYRINGE IVP PRN ×4 (08:53→20:08)
[2018-03-02] MEDS: Pantoprazole 40 MG VIAL IVP SCH (08:53)
[2018-03-02] MEDS ORDERED: Pantoprazole 40 MG VIAL IVP SCH (09:00)
--- NOTE | 2018-03-02 12:11 | General Surgery Progress Note ---
<Chase Reyes - Last Filed: 03/02/18 12:55> Date of Encounter: 03/02/18 Time of Encounter: 09:00 - Assessment and Plan (1) Large bowel obstruction Current Visit: Yes Status: Acute - Continue nothing by mouth suspected aspiration of stool. - Continue NG tube - Serial CBC and CMP - IVF - Serial abdominal exams - Continue pain management recommendations Subjective Patient reports: no new complaints, still having pain, no flatus, no bowel movement Narrative: Patient still in a lot of pain. She is currently nothing by mouth. Per ICU resident patient has been requesting water is stable off the ventilator and has been switched to the extra-large abdominal binder. Patient is not passing gas or bowel movement. Objective Vital Signs - Last 8 Hours Temp Pulse Resp BP Pulse Ox 03/02/18 11:00 110 18 119/63 95 03/02/18 10:00 110 18 119/64 95 03/02/18 09:00 110 18 112/59 91 03/02/18 08:44 11 104/72 93 03/02/18 08:04 99.9 F H 03/02/18 08:00 114 14 125/77 94 03/02/18 07:20 124 14 116/70 95 03/02/18 06:00 101 18 104/72 97 03/02/18 05:24 18 105/86 97 03/02/18 05:00 98 18 105/86 98 Intake and Output 03/01/18 03/02/18 03/02/18 23:59 07:59 15:59 Intake Total 450 / 450 Output Total 350 / 350 300 / 300 Balance -330 / -330 150 / 150 Intake: IV Fluids / 20 20 / 20 450 / 450 0.9 % Sodium Chloride 1,000 ML 450 / 450 @ 75 mls/hr IVC .[id number] [facility] Rx #:[id number] Mefoxin 2,000 MG In Water for 20 20 20 / 20 inj. (sterile) 20 ML @ 300 mls/ hr IVP Q8HR [facility] Rx#:[id number] Oral 0 / 0 Output: Stool 200 / 200 Estimated Blood Loss 250 / 250 Urine Amount (Catheter) 100 / 100 Catheter 100 / 100 Other: Stool Consistency liquid Stool Color Brown Blood Glucose* 152 - General physical appearance well developed, well nourished, severe distress - Respiratory normal expansion, normal respiratory effort - Cardiovascular Cardiovascular exam: Present: RRR - Abdomen Abdominal Tenderness: diffusely - Neurologic CN 2-12 grossly intact - Psychiatric oriented to time, oriented to person, oriented to place, speech is normal, memory intact - Labs 03/02/18 03:56 03/02/18 03:56 Diabetes panel 03/02/18 Range/Units 03:56 Sodium 140 (136-145) mEq/L Potassium 3.8 (3.5-5.1) mEq/L Chloride 111 H (98-107) mEq/L Carbon Dioxide 21 L (23-29) mEq/L BUN 28 H (8-23) mg/dL Creatinine 1.54 H (0.60-1.20) mg/dL Glucose 130 H (70-105) mg/dL Calcium 8.0 L (8.6-10.3) mg/dL Calcium panel 03/02/18 Range/Units 03:56 Calcium 8.0 L (8.6-10.3) mg/dL Pituitary panel 03/02/18 Range/Units 03:56 Sodium 140 (136-145) mEq/L Potassium 3.8 (3.5-5.1) mEq/L Chloride 111 H (98-107) mEq/L Carbon Dioxide 21 L (23-29) mEq/L BUN 28 H (8-23) mg/dL Creatinine 1.54 H (0.60-1.20) mg/dL Glucose 130 H (70-105) mg/dL Calcium 8.0 L (8.6-10.3) mg/dL Adrenal panel 03/02/18 Range/Units 03:56 Sodium 140 (136-145) mEq/L Potassium 3.8 (3.5-5.1) mEq/L Chloride 111 H (98-107) mEq/L Carbon Dioxide 21 L (23-29) mEq/L BUN 28 H (8-23) mg/dL Creatinine 1.54 H (0.60-1.20) mg/dL Glucose 130 H (70-105) mg/dL Calcium 8.0 L (8.6-10.3) mg/dL - VTE Documentation of Mechanical Device: Intermittent pneumatic compression device Consult Discharge Plan - Plan Referrals: Concha Rodriguez, [Primary Care Provider] - <Cristian Braden - Last Filed: 03/02/18 13:11> Date of Encounter: 03/02/18 Objective Vital Signs - Last 8 Hours Temp Pulse Resp BP Pulse Ox 03/02/18 12:12 98.1 F 03/02/18 12:00 105 18 116/71 95 03/02/18 11:00 110 18 119/63 95 03/02/18 10:00 110 18 119/64 95 03/02/18 09:00 110 18 112/59 91 03/02/18 08:44 11 104/72 93 03/02/18 08:04 99.9 F H 03/02/18 08:00 114 14 125/77 94 03/02/18 07:20 124 14 116/70 95 03/02/18 06:00 101 18 104/72 97 03/02/18 05:24 18 105/86 97 Intake and Output 03/01/18 03/02/18 03/02/18 23:59 07:59 15:59 Intake Total 20 450 / 450 Output Total 350 / 350 350 / 350 Balance -330 / -330 20 / 20 100 / 100 Intake: IV Fluids / 20 20 / 20 450 / 450 0.9 % Sodium Chloride 1,000 ML 450 / 450 @ 75 mls/hr IVC .[id number] [facility] Rx #:[id number] Mefoxin 2,000 MG In Water for 20 20 20 / 20 inj. (sterile) 20 ML @ 300 mls/ hr IVP Q8HR [facility] Rx#:[id number] Oral 0 / 0 Output: Stool 200 / 200 Estimated Blood Loss 250 / 250 Urine Amount (Catheter) 100 / 100 Catheter 150 / 150 Other: Stool Consistency liquid Stool Color Brown Blood Glucose* 152 125 - Labs 03/02/18 03:56 03/02/18 03:56 Diabetes panel 03/02/18 Range/Units 03:56 Sodium 140 (136-145) mEq/L Potassium 3.8 (3.5-5.1) mEq/L Chloride 111 H (98-107) mEq/L Carbon Dioxide 21 L (23-29) mEq/L BUN 28 H (8-23) mg/dL Creatinine 1.54 H (0.60-1.20) mg/dL Glucose 130 H (70-105) mg/dL Calcium 8.0 L (8.6-10.3) mg/dL Calcium panel 03/02/18 Range/Units 03:56 Calcium 8.0 L (8.6-10.3) mg/dL Pituitary panel 03/02/18 Range/Units 03:56 Sodium 140 (136-145) mEq/L Potassium 3.8 (3.5-5.1) mEq/L Chloride 111 H (98-107) mEq/L Carbon Dioxide 21 L (23-29) mEq/L BUN 28 H (8-23) mg/dL Creatinine 1.54 H (0.60-1.20) mg/dL Glucose 130 H (70-105) mg/dL Calcium 8.0 L (8.6-10.3) mg/dL Adrenal panel 03/02/18 Range/Units 03:56 Sodium 140 (136-145) mEq/L Potassium 3.8 (3.5-5.1) mEq/L Chloride 111 H (98-107) mEq/L Carbon Dioxide 21 L (23-29) mEq/L BUN 28 H (8-23) mg/dL Creatinine 1.54 H (0.60-1.20) mg/dL Glucose 130 H (70-105) mg/dL Calcium 8.0 L (8.6-10.3) mg/dL - Attending Attestation I examined this patient and my medical decision-making was reviewed with the Resident Physician. I agree with the documented findings, disposition and treatment plan as described except to the extent set forth below. The patient is seen and evaluated on morning rounds with resident. After surgery yesterday, she failed to come off the ventilator. She was placed in the intensive care unit. The ventilator was weaned. She is extubated this morning. Her oxygen saturations are 94%. She is awake and alert and answering questions. Pain control is fair. The ostomy transilluminates pink. There is no drainage from the wound. I am very pleased with her overall clinical course. We will maintain her in the ICU today. Plan transfer to the floor tomorrow if she remains stable. Cristian Braden MD FACS
[2018-03-02 13:34] LABS: Hematocrit 35.4 % (35.3-44.9); Hemoglobin 11.7 g/dL (11.5-15.4); Mean Corpuscular HGB Conc 33.1 g/dL (31.6-35.5); Mean Corpuscular Hemoglobin 27.8 pg (28.0-33.3); Mean Corpuscular Volume 84.1 fL (83.0-100.0); Mean Platelet Volume 8.6 fL (9.4-12.4); Platelet Count 360 K/mcL (140-400); Red Blood Count 4.21 M/mcL (3.82-4.97); Red Cell Distribution Width 16.3 % (11.5-14.5)
[2018-03-02 13:51] LABS: Lymphocytes # 2.2 K/mcL (0.6-4.6); Monocytes # 1.1 K/mcL (0.0-1.3); Platelet Estimate Normal (Normal); Toxic Granulation Present (Not Present)
[2018-03-02 13:52] LABS: Reactive Lymphocytes Present (Not Present)
[2018-03-02 13:57] LABS: Albumin 2.5 g/dL (3.5-5.7); Albumin/Globulin Ratio 1.1 (1.1-2.2); Bilirubin,Total 0.4 mg/dL (0.3-1.0); Calcium 8.2 mg/dL (8.6-10.3); Globulin 2.2 g/dL (2.4-3.5); Potassium 3.7 mEq/L (3.5-5.1); Total Protein 4.7 g/dL (6.4-8.9)
[2018-03-03] MEDS: Ringers Solution, Lactated 1,000 ML IVC SCH ×3 (00:54→19:33)
[2018-03-03 05:41] LABS: Basophils % 0.2 %; Hematocrit 33.4 % (35.3-44.9); Hemoglobin 11.1 g/dL (11.5-15.4); Immature Granulocytes % 0.9 % (0-4); Lymphocytes # 0.9 K/mcL (0.6-4.6); Lymphocytes % 3.6 %; Mean Corpuscular HGB Conc 33.2 g/dL (31.6-35.5); Mean Corpuscular Hemoglobin 28.8 pg (28.0-33.3); Mean Corpuscular Volume 86.5 fL (83.0-100.0); Mean Platelet Volume 8.7 fL (9.4-12.4); Monocytes # 1.4 K/mcL (0.0-1.3); Monocytes % 5.8 %; Neutrophils # 21.2 K/mcL (1.6-8.9); Platelet Count 322 K/mcL (140-400); Red Blood Count 3.86 M/mcL (3.82-4.97); Red Cell Distribution Width 16.4 % (11.5-14.5); Segmented Neutrophils % 89.5 %
[2018-03-03 05:47] LABS: Basophils # 0.1 K/mcL (0.0-0.2)
[2018-03-03 06:04] LABS: Calcium 8.2 mg/dL (8.6-10.3); Potassium 3.8 mEq/L (3.5-5.1)
[2018-03-03 06:06] LABS: Platelet Estimate Normal (Normal)
--- NOTE | 2018-03-03 07:03 | Pulmonology Progress Note ---
Date of Encounter: 03/03/18 Time of Encounter: 07:03 Assessment and Plan (1) Acute respiratory failure Current Visit: Yes Status: Acute This was noted in the postoperative setting she has been successfully liberated from the vent now she is on minimal amount of nasal cannula. Goal oxygen saturation around 92-94%. Suspected aspiration pneumonia and will repeat chest x-ray no clear evidence of worsening pneumonia but clinical suspicion is certainly present. Early termination of nasogastric tube adequate pain control incentive spirometry out of bed to chair and early ambulation as tolerated can all mitigate the effects of the atelectasis and VQ mismatch Qualifiers: Respiratory failure complication: hypoxia Qualified Code(s): J96.01 - Acute respiratory failure with hypoxia (2) Large bowel obstruction Current Visit: Yes Status: Acute Management per primary surgery service (3) Aspiration pneumonia Current Visit: Yes Status: Acute High suspicion for aspiration of gastric contents in the perioperative period Although chest x-ray today is not definitive for this I have concern for evolving sepsis which may reflect aspiration and would recommend initiation of antibiotics in this case Unasyn renally dosed per pharmacy Obtain blood and sputum urine cultures Obtain lactic acid Crystalloid bolus recommended to 30 mL per kg Qualifiers: Aspiration pneumonia type: unspecified Laterality: unspecified laterality Lung location: unspecified part of lung Qualified Code(s): J69.0 - Pneumonitis due to inhalation of food and vomit (4) GISELLA (acute kidney injury) Current Visit: Yes Status: Acute Suspected prerenal azotemia versus ATN from sepsis. Doubt postrenal postsurgical causes such as increased abdominal pressure there may have been damage to ureter intraoperatively leading to hydronephrosis and recommend renal ultrasound to further elucidate this Monitor strict intake and output Agree with crystalloid challenge per primary surgery service Check urine electrolytes and we will also check serum uric acid and CPK Repeat renal function panel this afternoon Nephrology consult based upon clinical course (5) DVT prophylaxis Current Visit: Yes Status: Acute She is receiving subcutaneous heparin Subjective Principal diagnosis: Large Bowel Obstruction Interval history: Overnight patient has been requesting oral water and ice chips she says she is very thirsty and feels very dry. Urine output has significantly decreased. She remains afebrile but tachycardic respiratory status has been stable on 2-3 L nasal cannula O2. Objective PUL Vital signs: Last Vital Signs Temp 98.8 F 03/03/18 04:38 Pulse 108 03/03/18 06:00 Resp 18 03/03/18 06:00 BP 105/52 03/03/18 06:00 Pulse Ox 91 03/03/18 06:00 General appearance: appears uncomfortable Eyes: nonicteric ENT: oropharynx dry, other (Nasogastric tube noted) Neck: supple Effort: normal Auscultation: bilateral: diminished breath sounds Cardiovascular: regular rate and rhythm Gastrointestinal: hypoactive bowel sounds, soft, tender (But no evidence of rigidity), other (Stool noted in colostomy) Integumentary: normal Extremities: no cyanosis, no edema, no clubbing normal mental status, non-focal exam, pupils equal and round mood appropriate Results - Laboratory Findings CBC and BMP: 03/03/18 05:29 03/03/18 05:29 ABG ABG pH 7.48 pH Units (7.32-7.45) H 03/02/18 04:48 ABG pCO2 28 mmHg (35-45) L 03/02/18 04:48 ABG pO2 82 mmHg (85-104) L 03/02/18 04:48 ABG O2 Saturation 97 % (95-98) 03/02/18 04:48 PT/INR, D-dimer PT 14.3 Seconds (9.4-12.1) H 02/28/18 13:16 Abnormal lab findings: Abnormal lab results WBC 23.7 K/mcL (4.3-11.1) H 03/03/18 05:29 Hgb 11.1 g/dL (11.5-15.4) L 03/03/18 05:29 Hct 33.4 % (35.3-44.9) L 03/03/18 05:29 RDW 16.4 % (11.5-14.5) H 03/03/18 05:29 MPV 8.7 fL (9.4-12.4) L 03/03/18 05:29 Band Neutrophils % 12.0 % (0-4) H 03/02/18 13:21 Neutrophils # 21.2 K/mcL (1.6-8.9) H 03/03/18 05:29 Monocytes # 1.4 K/mcL (0.0-1.3) H 03/03/18 05:29 Reactive Lymphocytes Present (Not Present) A 03/02/18 13:21 Toxic Granulation Present (Not Present) A 03/02/18 13:21 Polychromasia 1+ (Not Present) A 03/02/18 03:56 PT 14.3 Seconds (9.4-12.1) H 02/28/18 13:16 ABG pH 7.48 pH Units (7.32-7.45) H 03/02/18 04:48 ABG pCO2 28 mmHg (35-45) L 03/02/18 04:48 ABG pO2 82 mmHg (85-104) L 03/02/18 04:48 Chloride 112 mEq/L (98-107) H 03/03/18 05:29 Carbon Dioxide 21 mEq/L (23-29) L 03/03/18 05:29 BUN 48 mg/dL (8-23) H 03/03/18 05:29 Creatinine 3.17 mg/dL (0.60-1.20) H 03/03/18 05:29 Est GFR ( Amer) 18 (> 60) L 03/03/18 05:29 Est GFR (Non-Af Amer) 14 (> 60) L 03/03/18 05:29 Glucose 128 mg/dL (70-105) H 03/03/18 05:29 POC Glucose 117 mg/dL (70-99) H 03/03/18 00:31 Calculated Osmolality 306 (280-300) H 03/03/18 05:29 Calcium 8.2 mg/dL (8.6-10.3) L 03/03/18 05:29 AST 11 Units/L (13-39) L 03/02/18 13:21 Serum Total Protein 4.7 g/dL (6.4-8.9) L 03/02/18 13:21 Albumin 2.5 g/dL (3.5-5.7) L 03/02/18 13:21 Globulin 2.2 g/dL (2.4-3.5) L 03/02/18 13:21 Prealbumin 7.2 mg/dL (17.0-34.0) L 03/03/18 05:29 Lipase 5 Units/L (11-82) L 02/28/18 13:16 - Diagnostic Findings Chest x-ray: report reviewed, image reviewed - Clinical Findings Intake & Output: Intake & Output 07/03/02/18 03/03/18 15:59 23:59 07:59 Intake Total 450 / 450 1000 / 1000 1000 / 1000 Output Total 350 / 350 175 / 175 Balance 100 / 100 825 / 825 985 / 985 Weight 110.9 kg - VTE Documentation of Mechanical Device: Intermittent pneumatic compression device Consult Discharge Plan - Plan Referrals: Concha Rodriguez DO [Primary Care Provider] -
[2018-03-03] MEDS ORDERED: Ringers Solution, Lactated 1,000 ML ONE (07:50)
[2018-03-03] MEDS: Chlorhexidine Rinse 15 ML MOUTHWASH MM SCH (07:56)
[2018-03-03] MEDS: *HR* HYDROmorphone (PF) 1 MG/ML SYRINGE IVP PRN ×4 (08:08→23:15)
[2018-03-03] MEDS: *HR* Heparin 5,000 UNIT/ML VIAL SQ SCH ×2 (08:08→18:20)
[2018-03-03] MEDS: Pantoprazole 40 MG VIAL IVP SCH (08:09)
[2018-03-03 08:48] LABS: Uric Acid 8.2 mg/dL (2.3-7.6)
[2018-03-03 08:58] LABS: Bilirubin,Urine Small (Negative); Blood,Urine Large (Negative); Clarity,Urine Turbid (Clear); Color,Urine Dark Yellow (Yellow); Glucose,Urine (UA) Normal (Normal); Ketones,Urine 15 mg/dL (Negative); Leukocyte Esterase,Urine Trace (Negative); Nitrite,Urine Negative (Negative); Protein,Urine 100 mg/dL (Neg-Trace); Specific Gravity,Urine > 1.030 (1.010-1.025); Urobilinogen,Urine Normal (Normal)
[2018-03-03 09:01] LABS: Bacteria,Urine None Seen per hpf (None-Few); Hyaline Casts,Urine None Seen per lpf (None-Few); RBC,Urine 50-100 per hpf (0-3); Squamous Epithelial Cell,Urine Moderate per lpf (None-Few)
[2018-03-03] MEDS ORDERED: Ringers Solution, Lactated 1,000 ML IVC ONE (10:09)
[2018-03-03] MEDS: Ampicillin/Sulbactam 3,000 MG in 0.9 % Sodium Chloride Mini Bag 100 ML IVPB SCH ×2 (10:31→19:32)
--- NOTE | 2018-03-03 10:46 | General Surgery Progress Note ---
<Chase Reyes - Last Filed: 03/03/18 11:13> Date of Encounter: 03/03/18 Time of Encounter: 11:13 - Assessment and Plan (1) Large bowel obstruction Current Visit: Yes Status: Acute 72 YO F s/p day 2 for colon resection with ostomy placement. - No ostomy intervention required - transilluminates pink with stool output - Continue oxygenation on room air - Patient's is doing well off ventilator with O2 saturation at 96% this AM - Continue NPO, but allowed to have ice chips - WBC count is elevated today at 23.7, down from 27.3 - will continue Unasyn ABX regmien and continue to monitor with serial CBC and CMP - IVF - Continue NG tube - Serial abdominal exams - Continue pain management with dilaudid and oxy PRN - Decreased urinary output noted - see plans below. (2) GISELLA (acute kidney injury) Current Visit: Yes Status: Acute Patient has decreased to no urinary output after surgery. GFR was 14, down from 28L 2 days ago. Creatinine elevated at 3.17 up from 2.14 2 days ago. - Will try fluid challenge in AM, if unsuccessful will wait an hour and repeat. - If both are unsuccessful with plastics heat welder her full liter of fluid via IV and lasiks. Subjective Patient reports: still having pain, no flatus, no bowel movement Narrative: Ms. Handley is a 72 year old F here for bowel obstruction secondary to perforated diverticular disease. She is post PO day 2 for lcolon resection with ostomy placement. The patient appears to be in moderate distress. Per her nurse she has not been outputting urine adequately. She outputted 100 mL via catheter on Saturday. Has not had output via catheter on Saturday or today. Patient reports wanting liquids. Ostomy was put in Saturday. Objective Vital Signs - Last 8 Hours Temp Pulse Resp BP Pulse Ox 03/03/18 09:30 102 20 95/69 96 03/03/18 08:30 111 21 102/87 03/03/18 08:00 97.9 F 03/03/18 07:30 108 21 102/59 93 03/03/18 06:00 108 18 105/52 91 03/03/18 05:00 104 14 110/62 91 03/03/18 04:38 98.8 F 03/03/18 04:00 114 18 101/32 03/03/18 03:00 105 18 101/57 Intake and Output 03/02/18 03/03/18 03/03/18 23:59 07:59 15:59 Intake Total 1000 / 1000 1000 / 1000 Output Total 175 / 175 95 / 95 Balance 825 / 825 985 / 985 -95 / -95 Intake: IV Fluids 1000 / 1000 1000 / 1000 Lactated Ringers 1,000 ML @ 125 1000 / 1000 1000 / 1000 mls/hr IVC .Q8H [facility] Rx#: [id number] Output: Stool 100 / 100 75 / 75 Catheter 75 / 75 Other: Weight 110.9 kg Blood Glucose* 114 Patient Weight 03/03/18 23:59 Weight 110.9 kg - General physical appearance well developed, moderate distress, severe distress - Respiratory normal expansion, normal respiratory effort - Cardiovascular Cardiovascular exam: Present: RRR - Abdomen Abdominal Tenderness: diffusely Additional Comments: Ostomy site is pink and outputting stool. - Neurologic CN 2-12 grossly intact - Psychiatric oriented to time, oriented to person, oriented to place, speech is normal, memory intact - Labs 03/03/18 05:29 03/03/18 05:29 Diabetes panel 03/02/18 03/03/18 Range/Units 13:21 05:29 Sodium 142 141 (136-145) mEq/L Potassium 3.7 3.8 (3.5-5.1) mEq/L Chloride 112 H 112 H (98-107) mEq/L Carbon Dioxide 23 21 L (23-29) mEq/L BUN 35 H 48 H (8-23) mg/dL Creatinine 2.14 H 3.17 H (0.60-1.20) mg/dL Glucose 139 H 128 H (70-105) mg/dL Calcium 8.2 L 8.2 L (8.6-10.3) mg/dL AST 11 L (13-39) Units/L ALT 8 (7-52) Units/L Alkaline Phosphatase 72 (34-104) Units/L Albumin 2.5 L (3.5-5.7) g/dL Calcium panel 03/02/18 03/03/18 Range/Units 13:21 05:29 Calcium 8.2 L 8.2 L (8.6-10.3) mg/dL Albumin 2.5 L (3.5-5.7) g/dL Pituitary panel 03/02/18 03/03/18 Range/Units 13:21 05:29 Sodium 142 141 (136-145) mEq/L Potassium 3.7 3.8 (3.5-5.1) mEq/L Chloride 112 H 112 H (98-107) mEq/L Carbon Dioxide 23 21 L (23-29) mEq/L BUN 35 H 48 H (8-23) mg/dL Creatinine 2.14 H 3.17 H (0.60-1.20) mg/dL Glucose 139 H 128 H (70-105) mg/dL Calcium 8.2 L 8.2 L (8.6-10.3) mg/dL Adrenal panel 03/02/18 03/03/18 Range/Units 13:21 05:29 Sodium 142 141 (136-145) mEq/L Potassium 3.7 3.8 (3.5-5.1) mEq/L Chloride 112 H 112 H (98-107) mEq/L Carbon Dioxide 23 21 L (23-29) mEq/L BUN 35 H 48 H (8-23) mg/dL Creatinine 2.14 H 3.17 H (0.60-1.20) mg/dL Glucose 139 H 128 H (70-105) mg/dL Calcium 8.2 L 8.2 L (8.6-10.3) mg/dL Total Bilirubin 0.4 (0.3-1.0) mg/dL AST 11 L (13-39) Units/L ALT 8 (7-52) Units/L Alkaline Phosphatase 72 (34-104) Units/L Albumin 2.5 L (3.5-5.7) g/dL - VTE Documentation of Mechanical Device: Intermittent pneumatic compression device Consult Discharge Plan - Plan Referrals: Concha Rodriguez DO [Primary Care Provider] - <Cristian Braden - Last Filed: 03/03/18 14:42> Date of Encounter: 03/03/18 Objective Vital Signs - Last 8 Hours Temp Pulse Resp BP Pulse Ox 03/03/18 13:30 109 21 122/67 93 03/03/18 12:30 102 20 116/60 93 03/03/18 11:51 99.4 F 03/03/18 11:36 105 22 105/83 94 03/03/18 10:35 102 20 106/78 95 03/03/18 09:30 102 20 95/69 96 03/03/18 08:30 111 21 102/87 03/03/18 08:00 97.9 F 03/03/18 07:30 108 21 102/59 93 Intake and Output 03/02/18 03/03/18 03/03/18 23:59 07:59 15:59 Intake Total 1000 / 1000 1000 / 1000 1999 Output Total 175 / 175 115 / 115 Balance 825 / 825 985 / 985 1885 / 1885 Intake: IV Fluids 1000 / 1000 1000 / 1000 1999 / 1999 Lactated Ringers 1,000 ML @ 125 1000 / 1000 1000 / 1000 1999 / 1999 mls/hr IVC .Q8H [facility] Rx#: [id number] Output: Stool 100 / 100 75 / 75 Catheter 75 / 75 40 / 40 Other: Weight 110.9 kg Blood Glucose* 114 110 Patient Weight 03/03/18 23:59 Weight 110.9 kg - Labs 03/03/18 05:29 03/03/18 05:29 Diabetes panel 03/03/18 Range/Units 05:29 Sodium 141 (136-145) mEq/L Potassium 3.8 (3.5-5.1) mEq/L Chloride 112 H (98-107) mEq/L Carbon Dioxide 21 L (23-29) mEq/L BUN 48 H (8-23) mg/dL Creatinine 3.17 H (0.60-1.20) mg/dL Glucose 128 H (70-105) mg/dL Calcium 8.2 L (8.6-10.3) mg/dL Calcium panel 03/03/18 Range/Units 05:29 Calcium 8.2 L (8.6-10.3) mg/dL Pituitary panel 03/03/18 Range/Units 05:29 Sodium 141 (136-145) mEq/L Potassium 3.8 (3.5-5.1) mEq/L Chloride 112 H (98-107) mEq/L Carbon Dioxide 21 L (23-29) mEq/L BUN 48 H (8-23) mg/dL Creatinine 3.17 H (0.60-1.20) mg/dL Glucose 128 H (70-105) mg/dL Calcium 8.2 L (8.6-10.3) mg/dL Adrenal panel 03/03/18 Range/Units 05:29 Sodium 141 (136-145) mEq/L Potassium 3.8 (3.5-5.1) mEq/L Chloride 112 H (98-107) mEq/L Carbon Dioxide 21 L (23-29) mEq/L BUN 48 H (8-23) mg/dL Creatinine 3.17 H (0.60-1.20) mg/dL Glucose 128 H (70-105) mg/dL Calcium 8.2 L (8.6-10.3) mg/dL - Attending Attestation I examined this patient and my medical decision-making was reviewed with the Resident Physician. I agree with the documented findings, disposition and treatment plan as described except to the extent set forth below. The patient is seen and evaluated with rest and on morning rounds. 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 Her urinary output has decreased. We are treating her with fluid boluses. She appears to have worsening acute kidney. Injury. Maintain ICU therapy and supportive care. Ostomy appears congested but pink to transillumination Cristian Braden MD FACS
[2018-03-03] MEDS ORDERED: Lidocaine -MPF 1% 5 ML AMPUL INFILT ONE (12:54)
[2018-03-03] MEDS ORDERED: D10% in Water 500 ML IVC PRN (13:17)
[2018-03-03] MEDS ORDERED: 0.9 % Sodium Chloride 500 ML IVC ONE (14:25)
[2018-03-03 15:36] LABS: Magnesium 1.9 mg/dL (1.6-2.6)
[2018-03-03 16:07] LABS: Calcium 7.9 mg/dL (8.6-10.3); Phosphorous 5.1 mg/dL (2.7-4.5); Potassium 3.8 mEq/L (3.5-5.1)
[2018-03-03] MEDS: Clinimix E 5%-15% SOLUTION 2,000 ML with MVI, adult with vitamin K 10 ML IVC SCH (18:08)
[2018-03-03] MEDS ORDERED: Dextrose Gel 15 GM/37.5 ML TUBE PO PRN ×2 (19:04)
[2018-03-03] MEDS ORDERED: D5% in Water 1,000 ML IVC PRN (19:04)
[2018-03-03] MEDS ORDERED: *HR* Dextrose 50 % in Water (Syg) 50 ML SYRINGE IVP PRN (19:04)
[2018-03-04] MEDS: Chlorhexidine Rinse 15 ML MOUTHWASH MM SCH ×3 (00:10→19:43)
[2018-03-04] MEDS: Insulin LISPRO 300 UNITS/3 ML VIAL SQ SCH ×4 (03:39→17:46)
[2018-03-04] MEDS: Ringers Solution, Lactated 1,000 ML IVC SCH ×3 (03:40→19:42)
[2018-03-04 03:55] LABS: Basophils % 0.1 %; Hematocrit 26.8 % (35.3-44.9); Immature Platelets 1.2 % (1.1-6.1); Lymphocytes # 0.7 K/mcL (0.6-4.6); Mean Corpuscular HGB Conc 33.6 g/dL (31.6-35.5); Mean Corpuscular Hemoglobin 29.4 pg (28.0-33.3); Mean Corpuscular Volume 87.6 fL (83.0-100.0); Mean Platelet Volume 8.9 fL (9.4-12.4); Monocytes # 0.6 K/mcL (0.0-1.3); Monocytes % 3.4 %; Neutrophils # 16.9 K/mcL (1.6-8.9); Platelet Count 280 K/mcL (140-400); Red Blood Count 3.06 M/mcL (3.82-4.97); Red Cell Distribution Width 16.4 % (11.5-14.5); Segmented Neutrophils % 91.5 %
[2018-03-04 04:23] LABS: Calcium 7.9 mg/dL (8.6-10.3); Phosphorous 4.2 mg/dL (2.7-4.5); Potassium 3.7 mEq/L (3.5-5.1)
[2018-03-04] MEDS: *HR* Heparin 5,000 UNIT/ML VIAL SQ SCH ×2 (06:36→17:41)
--- NOTE | 2018-03-04 06:46 | Pulmonology Progress Note ---
Date of Encounter: 03/04/18 Time of Encounter: 06:46 Assessment and Plan (1) Acute respiratory failure Current Visit: Yes Status: Acute This was noted in the postoperative setting she has been successfully liberated from the vent now she is on minimal amount of nasal cannula. Goal oxygen saturation around 92-94%. Suspected aspiration pneumonia however radiographically there is no conclusive evidence of this clinically I suspect that her hypoxemia is mostly related to VQ mismatching secondary to atelectasis to mitigate that I recommend out of bed to chair incentive spirometry and early ambulation as tolerated and supervised Qualifiers: Respiratory failure complication: hypoxia Qualified Code(s): J96.01 - Acute respiratory failure with hypoxia (2) Large bowel obstruction Current Visit: Yes Status: Acute Management per primary surgery service (3) Aspiration pneumonia Current Visit: Yes Status: Acute The patient has some evidence of aspiration pneumonia based upon elevated white count and respiratory failure in her postoperative period although radiographically no conclusive evidence of abscess. Remains afebrile white count trending down after initiation of Unasyn I think its role reasonable to continue treatment for pneumonia for the next 24 hours to give her 48 hours for coverage and if cultures remain negative and clinically she has no strong evidence of infection then could discontinue Qualifiers: Aspiration pneumonia type: unspecified Laterality: unspecified laterality Lung location: unspecified part of lung Qualified Code(s): J69.0 - Pneumonitis due to inhalation of food and vomit (4) GISELLA (acute kidney injury) Current Visit: Yes Status: Acute Suspected prerenal azotemia Renal ultrasound without acute process Serum creatinine today has improved Urine output picking up I suspect that IV fluids can be discontinued today to avoid pulmonary edema (5) DVT prophylaxis Current Visit: Yes Status: Acute She is receiving subcutaneous heparin Subjective Principal diagnosis: Large Bowel Obstruction Interval history: No acute events in the last 24 hours patient's a urine output has increased markedly over the course of the morning and serum creatinine has trended down. She has been getting appropriate analgesia until comfortable when I saw her although she continues to request ice chips. Objective PUL Vital signs: Last Vital Signs Temp 98.3 F 03/03/18 23:00 Pulse 99 03/04/18 06:00 Resp 20 03/04/18 06:00 BP 106/72 03/04/18 06:00 Pulse Ox 92 03/04/18 06:00 General appearance: no acute distress Eyes: nonicteric ENT: oropharynx dry, other (Nasogastric tube has been removed) Effort: normal Auscultation: bilateral: clear Cardiovascular: regular rate and rhythm Gastrointestinal: hypoactive bowel sounds, other (Ostomy site pink and well perfused and there is stool in the ostomy bag) Integumentary: normal Extremities: no cyanosis, no edema Musculoskeletal: no deformities normal mental status, non-focal exam mood appropriate Results - Laboratory Findings CBC and BMP: 03/04/18 03:28 03/04/18 03:28 ABG ABG pH 7.48 pH Units (7.32-7.45) H 03/02/18 04:48 ABG pCO2 28 mmHg (35-45) L 03/02/18 04:48 ABG pO2 82 mmHg (85-104) L 03/02/18 04:48 ABG O2 Saturation 97 % (95-98) 03/02/18 04:48 PT/INR, D-dimer PT 14.3 Seconds (9.4-12.1) H 02/28/18 13:16 Abnormal lab findings: Abnormal lab results WBC 18.5 K/mcL (4.3-11.1) H 03/04/18 03:28 RBC 3.06 M/mcL (3.82-4.97) L 03/04/18 03:28 Hgb 9.0 g/dL (11.5-15.4) L D 03/04/18 03:28 Hct 26.8 % (35.3-44.9) L 03/04/18 03:28 RDW 16.4 % (11.5-14.5) H 03/04/18 03:28 MPV 8.9 fL (9.4-12.4) L 03/04/18 03:28 Band Neutrophils % 12.0 % (0-4) H 03/02/18 13:21 Neutrophils # 16.9 K/mcL (1.6-8.9) H 03/04/18 03:28 Reactive Lymphocytes Present (Not Present) A 03/02/18 13:21 Toxic Granulation Present (Not Present) A 03/02/18 13:21 Polychromasia 1+ (Not Present) A 03/02/18 03:56 PT 14.3 Seconds (9.4-12.1) H 02/28/18 13:16 ABG pH 7.48 pH Units (7.32-7.45) H 03/02/18 04:48 ABG pCO2 28 mmHg (35-45) L 03/02/18 04:48 ABG pO2 82 mmHg (85-104) L 03/02/18 04:48 Chloride 111 mEq/L (98-107) H 03/04/18 03:28 Carbon Dioxide 22 mEq/L (23-29) L 03/04/18 03:28 BUN 57 mg/dL (8-23) H 03/04/18 03:28 Creatinine 2.60 mg/dL (0.60-1.20) H 03/04/18 03:28 Est GFR ( Amer) 22 (> 60) L 03/04/18 03:28 Est GFR (Non-Af Amer) 18 (> 60) L 03/04/18 03:28 Glucose 154 mg/dL (70-105) H 03/04/18 03:28 POC Glucose 123 mg/dL (70-99) H 03/03/18 23:09 Calculated Osmolality 309 (280-300) H 03/04/18 03:28 Uric Acid 8.2 mg/dL (2.3-7.6) H 03/03/18 08:15 Calcium 7.9 mg/dL (8.6-10.3) L 03/04/18 03:28 AST 11 Units/L (13-39) L 03/02/18 13:21 Serum Total Protein 4.7 g/dL (6.4-8.9) L 03/02/18 13:21 Albumin 2.0 g/dL (3.5-5.7) L 03/03/18 15:00 Globulin 2.2 g/dL (2.4-3.5) L 03/02/18 13:21 Prealbumin 7.2 mg/dL (17.0-34.0) L 03/03/18 05:29 Lipase 5 Units/L (11-82) L 02/28/18 13:16 Urine Clarity Turbid (Clear) A 03/03/18 08:40 Ur Specific [place] > 1.030 (1.010-1.025) H 03/03/18 08:40 Urine Protein 100 mg/dL (Neg-Trace) H 03/03/18 08:40 Urine Ketones 15 mg/dL (Negative) H 03/03/18 08:40 Urine Blood Large (Negative) H 03/03/18 08:40 Urine Bilirubin Small (Negative) H 03/03/18 08:40 Ur Leukocyte Esterase Trace (Negative) H 03/03/18 08:40 Urine Microscopic RBC 50-100 per hpf (0-3) H 03/03/18 08:40 Urine Microscopic WBC 5-15 per hpf (0-3) H 03/03/18 08:40 Ur Squamous Epith Cells Moderate per lpf (None-Few) H 03/03/18 08:40 Ur Culture Indicated? YES (NO) A 03/03/18 08:40 - Microbiology Findings Microbiology Findings: Microbiology, Last 48 Hours 03/03/18 08:22 Blood Culture - Preliminary Peripheral Venipuncture Culture is incubating and being continuously monitored for growth. Final report to follow. 03/03/18 08:15 Blood Culture - Preliminary Peripheral Venipuncture Culture is incubating and being continuously monitored for growth. Final report to follow. - Clinical Findings Intake & Output: Intake & Output 03/03/18 03/03/18 03/04/18 15:59 23:59 07:59 Intake Total 2600 / 2600 1000 / 1000 1250 / 1250 Output Total 115 / 115 130 / 130 Balance 2485 / 2485 870 / 870 1250 / 1250 - VTE Documentation of Mechanical Device: Intermittent pneumatic compression device Consult Discharge Plan - Plan Referrals: Concha Rodriguez DO [Primary Care Provider] -
[2018-03-04] MEDS: Ampicillin/Sulbactam 3,000 MG in 0.9 % Sodium Chloride Mini Bag 100 ML IVPB SCH ×2 (08:21→19:43)
[2018-03-04] MEDS: Pantoprazole 40 MG VIAL IVP SCH (08:25)
--- NOTE | 2018-03-04 10:41 | General Surgery Progress Note ---
Addendum entered and electronically signed by Chase Reyes 03/04/18 10:57: Per nurse patient has had flatus and faint bowel sounds appreciated. Okay to pull NG. Original Note: <CristoChase T - Last Filed: 03/04/18 10:55> Date of Encounter: 03/04/18 Time of Encounter: 10:37 - Assessment and Plan (1) Large bowel obstruction Current Visit: Yes Status: Acute 72 YO F s/p day 2 for colon resection with ostomy placement. Patient doing better today. Urine output has restarted and ostomy is pink. - No ostomy intervention required - pink with stool output - Continue oxygenation on room air - Patient's is doing well off ventilator with O2 saturation at 96% this AM - Continue NPO, but allowed to have ice chips - WBC count is elevated today at 18.5 down from 23.7, 27.3 - will continue Unasyn ABX regmien and continue to monitor with serial CBC and CMP - IVF - D/C NG tube - PT/OT - Serial abdominal exams - Continue pain management with dilaudid and oxy PRN. - Continue ICU management - if beds become full please page Dr. Braden to get placement recs. (2) GISELLA (acute kidney injury) Current Visit: Yes Status: Acute Assessment: Kidney function appears to be improving - Patient regained urinary output, 185 yesterday, 565 today. GFR 18 increased from 16 yeterday. Creatinine elevated at 2.6 down from 3.41 yesterday. - Continue IVF and catheter use. Subjective Patient reports: no new complaints, feels better, pain is less, no flatus, no bowel movement Narrative: Ms. Handley is a 72 year old F here for bowel obstruction secondary to perforated diverticular disease. She is post PO day 3 for colon resection with ostomy placement. The patient appears to be in mild distress. Urine output has increased following fluid challenge yesterday. Catheter output was 185 yesterday and 565 this morning. Ostomy pink. Objective Vital Signs - Last 8 Hours Temp Pulse Resp BP Pulse Ox 03/04/18 08:15 98 21 96/63 92 03/04/18 08:12 100.0 F H 03/04/18 07:19 98 20 89/55 92 03/04/18 06:00 99 20 106/72 92 03/04/18 05:00 103 18 115/65 92 03/04/18 04:00 98 16 97/69 91 03/04/18 03:38 97 03/04/18 03:00 98 18 93/65 93 Intake and Output 03/03/18 03/04/18 03/04/18 23:59 07:59 15:59 Intake Total 1100 / 1100 1250 / 1250 Output Total 230 / 230 365 / 365 300 / 300 Balance 870 / 870 885 / 885 -300 / -300 Intake: IV Fluids 1100 / 1100 1250 / 1250 Lactated Ringers 1,000 ML @ 125 1000 / 1000 1000 / 1000 mls/hr IVC .Q8H [facility] Rx#: [id number] Unasyn 3,000 MG In 0.9 % Sodium 100 / 100 Chloride (Mini-Bag +) 100 ML @ 200 mls/hr IVPB Q12H [facility] Rx#: [id number] Intralipid 20% 250 ML @ 21 mls/ 250 / 250 hr IVPB DAILY@1700 [facility] Rx#: [id number] Output: Stool 100 / 100 Catheter 130 / 130 365 / 365 200 / 200 Gastric Drainage 100 / 100 - General physical appearance well developed, moderate distress - Respiratory normal respiratory effort - Cardiovascular Cardiovascular exam: Present: RRR - Abdomen Abdomen: Present: soft, tender. Absent: bowel sounds present Abdominal Tenderness: diffusely Additional Comments: Ostomy site is pink - Labs 03/04/18 03:28 03/04/18 03:28 Diabetes panel 03/03/18 03/03/18 03/04/18 Range/Units 15:00 15:00 03:28 Sodium 142 140 (136-145) mEq/L Potassium 3.8 3.7 (3.5-5.1) mEq/L Chloride 112 H 111 H (98-107) mEq/L Carbon Dioxide 23 22 L (23-29) mEq/L BUN 52 H 57 H (8-23) mg/dL Creatinine 3.41 H 2.60 H (0.60-1.20) mg/dL Glucose 112 H 154 H (70-105) mg/dL Calcium 7.9 L 7.9 L (8.6-10.3) mg/dL Albumin 2.0 L (3.5-5.7) g/dL Triglycerides 98 (< 150) mg/dL Calcium panel 03/03/18 03/03/18 03/04/18 Range/Units 15:00 15:00 03:28 Calcium 7.9 L 7.9 L (8.6-10.3) mg/dL Phosphorus 5.0 H 5.1 H 4.2 (2.7-4.5) mg/dL Albumin 2.0 L (3.5-5.7) g/dL Pituitary panel 03/03/18 03/04/18 Range/Units 15:00 03:28 Sodium 142 140 (136-145) mEq/L Potassium 3.8 3.7 (3.5-5.1) mEq/L Chloride 112 H 111 H (98-107) mEq/L Carbon Dioxide 23 22 L (23-29) mEq/L BUN 52 H 57 H (8-23) mg/dL Creatinine 3.41 H 2.60 H (0.60-1.20) mg/dL Glucose 112 H 154 H (70-105) mg/dL Calcium 7.9 L 7.9 L (8.6-10.3) mg/dL Adrenal panel 03/03/18 03/04/18 Range/Units 15:00 03:28 Sodium 142 140 (136-145) mEq/L Potassium 3.8 3.7 (3.5-5.1) mEq/L Chloride 112 H 111 H (98-107) mEq/L Carbon Dioxide 23 22 L (23-29) mEq/L BUN 52 H 57 H (8-23) mg/dL Creatinine 3.41 H 2.60 H (0.60-1.20) mg/dL Glucose 112 H 154 H (70-105) mg/dL Calcium 7.9 L 7.9 L (8.6-10.3) mg/dL Albumin 2.0 L (3.5-5.7) g/dL - VTE Documentation of Mechanical Device: Intermittent pneumatic compression device Consult Discharge Plan - Plan Referrals: Concha Rodriguez DO [Primary Care Provider] - <Cristian Braden - Last Filed: 03/05/18 09:52> Date of Encounter: 03/04/18 Objective Vital Signs - Last 8 Hours Temp Pulse Resp BP Pulse Ox 03/05/18 09:00 89 19 146/82 94 03/05/18 08:24 99.6 F 03/05/18 08:00 87 18 144/81 94 03/05/18 07:30 98 20 137/87 93 03/05/18 06:00 97 21 130/80 93 03/05/18 05:00 93 18 123/78 94 03/05/18 04:37 99.7 F H 03/05/18 04:00 94 18 131/79 96 03/05/18 03:56 93 03/05/18 03:00 95 17 129/79 94 03/05/18 02:00 102 22 131/97 95 Intake and Output 03/04/18 03/05/18 03/05/18 23:59 07:59 15:59 Intake Total 100 / 100 1250 / 1250 382 / 382 Output Total 300 / 300 550 / 550 350 / 350 Balance -200 / -200 700 / 700 32 / 32 Intake: IV Fluids 100 / 100 1250 / 1250 362 / 362 Lactated Ringers 1,000 ML @ 125 1000 / 1000 mls/hr IVC .Q8H [facility] Rx#: [id number] Unasyn 3,000 MG In 0.9 % Sodium 100 / 100 100 / 100 Chloride (Mini-Bag +) 100 ML @ 200 mls/hr IVPB Q6H [facility] Rx#: [id number] Intralipid 20% 250 ML @ 21 mls/ 250 / 250 hr IVPB DAILY@1700 [facility] Rx#: [id number] KCl 20 MEQ Xylocaine 2 ML In 262 / 262 Dextrose 5% 250 ML @ 131 mls/hr IVPB ONCE ONE Rx#:[id number] Oral 20 / 20 Output: Stool 200 / 200 Catheter 300 / 300 550 / 550 150 / 150 Other: Weight 114.6 kg Blood Glucose* 141 Patient Weight 03/05/18 23:59 Weight 114.6 kg - Labs 03/05/18 08:05 03/05/18 03:50 Diabetes panel 03/05/18 Range/Units 03:50 Sodium 143 (136-145) mEq/L Potassium 3.3 L (3.5-5.1) mEq/L Chloride 113 H (98-107) mEq/L Carbon Dioxide 25 (23-29) mEq/L BUN 51 H (8-23) mg/dL Creatinine 1.44 H (0.60-1.20) mg/dL Glucose 167 H (70-105) mg/dL Calcium 8.1 L (8.6-10.3) mg/dL Calcium panel 03/05/18 Range/Units 03:50 Calcium 8.1 L (8.6-10.3) mg/dL Phosphorus 2.9 (2.7-4.5) mg/dL Pituitary panel 03/05/18 Range/Units 03:50 Sodium 143 (136-145) mEq/L Potassium 3.3 L (3.5-5.1) mEq/L Chloride 113 H (98-107) mEq/L Carbon Dioxide 25 (23-29) mEq/L BUN 51 H (8-23) mg/dL Creatinine 1.44 H (0.60-1.20) mg/dL Glucose 167 H (70-105) mg/dL Calcium 8.1 L (8.6-10.3) mg/dL Adrenal panel 03/05/18 Range/Units 03:50 Sodium 143 (136-145) mEq/L Potassium 3.3 L (3.5-5.1) mEq/L Chloride 113 H (98-107) mEq/L Carbon Dioxide 25 (23-29) mEq/L BUN 51 H (8-23) mg/dL Creatinine 1.44 H (0.60-1.20) mg/dL Glucose 167 H (70-105) mg/dL Calcium 8.1 L (8.6-10.3) mg/dL - Attending Attestation I examined this patient and my medical decision-making was reviewed with the Resident Physician. I agree with the documented findings, disposition and treatment plan as described except to the extent set forth below. Nasogastric tube can be removed today. Ostomy function with normal bowel sounds Cristian Braden MD FACS
[2018-03-04] MEDS: *HR* HYDROmorphone (PF) 1 MG/ML SYRINGE IVP PRN ×2 (13:44→20:01)
[2018-03-04] MEDS ORDERED: Clinimix E 5%-15% SOLUTION 2,000 ML with MVI, adult with vitamin K 10 ML IVC SCH (17:00)
[2018-03-05] MEDS: Insulin LISPRO 300 UNITS/3 ML VIAL SQ SCH ×3 (00:13→20:56)
[2018-03-05] MEDS: Ringers Solution, Lactated 1,000 ML IVC SCH ×4 (00:16→23:28)
[2018-03-05] MEDS: *HR* HYDROmorphone (PF) 1 MG/ML SYRINGE IVP PRN ×2 (02:07→10:50)
[2018-03-05 04:25] LABS: Calcium 8.1 mg/dL (8.6-10.3); Phosphorous 2.9 mg/dL (2.7-4.5); Potassium 3.3 mEq/L (3.5-5.1)
[2018-03-05] MEDS: *HR* Heparin 5,000 UNIT/ML VIAL SQ SCH ×2 (04:32→17:46)
[2018-03-05] MEDS ORDERED: Potassium Chloride 20 MEQ, Lidocaine 1% 2 ML in D5% in Water 250 ML IVPB ONE (04:40)
--- NOTE | 2018-03-05 07:06 | Pulmonology Progress Note ---
Date of Encounter: 03/05/18 Time of Encounter: 07:06 Assessment and Plan (1) Acute respiratory failure Current Visit: Yes Status: Acute She is on minimal amount of nasal cannula. Goal oxygen saturation around 92-94%. Suspected aspiration pneumonia however radiographically there is no conclusive evidence of this clinically I suspect that her hypoxemia is mostly related to VQ mismatching secondary to atelectasis to mitigate that I recommend out of bed to chair incentive spirometry and early ambulation as tolerated and supervised I would caution against the continued use of intravenous crystalloid to avoid precipating hydrostatic pulmonary edema and potentially worsening this scenario. Qualifiers: Qualified Code(s): J96.01 - Acute respiratory failure with hypoxia (2) Large bowel obstruction Current Visit: Yes Status: Acute Management per primary surgery service (3) Aspiration pneumonia Current Visit: Yes Status: Acute Currently Day 2 of Unasyn Cultures negative. WBC count trending down. Has a low -grade temperature but clinically she appears to be improving would not make any adjustments to her antimicrobials at present recommend 5-7 day course for treatment of pneumonia based upon clinical response Qualifiers: Qualified Code(s): J69.0 - Pneumonitis due to inhalation of food and vomit (4) GISELLA (acute kidney injury) Current Visit: Yes Status: Acute Suspected prerenal azotemia Renal ultrasound without acute process Serum creatinine today continues Urine output picking up I suspect that IV fluids can be discontinued to avoid pulmonary edema (5) DVT prophylaxis Current Visit: Yes Status: Acute She is receiving subcutaneous heparin Pulmonary will sign off please call with any questions Subjective Principal diagnosis: Large Bowel Obstruction Interval history: No acute events in the last 24 hours. Serum creatinine is trending towards normalization urine output has normalized as well. The patient has had a low- grade temperature but leukocytosis is improving and there is no other clear evidence of worsening sepsis Objective PUL Vital signs: Last Vital Signs Temp 99.7 F H 03/05/18 04:37 Pulse 97 03/05/18 06:00 Resp 21 03/05/18 06:00 BP 130/80 03/05/18 06:00 Pulse Ox 93 03/05/18 06:00 General appearance: no acute distress, lethargic (easily arousable. ) ENT: oropharynx moist Effort: normal Auscultation: bilateral: clear Cardiovascular: regular rate and rhythm Gastrointestinal: soft, non-tender, other (Ostomy site noted which is pink and there is stool in the colostomy bag) Integumentary: normal Extremities: no cyanosis, no edema normal mental status, non-focal exam mood appropriate Results - Laboratory Findings CBC and BMP: 03/05/18 08:05 03/05/18 03:50 ABG ABG pH 7.48 pH Units (7.32-7.45) H 03/02/18 04:48 ABG pCO2 28 mmHg (35-45) L 03/02/18 04:48 ABG pO2 82 mmHg (85-104) L 03/02/18 04:48 ABG O2 Saturation 97 % (95-98) 03/02/18 04:48 PT/INR, D-dimer PT 14.3 Seconds (9.4-12.1) H 02/28/18 13:16 Abnormal lab findings: Abnormal lab results WBC 18.5 K/mcL (4.3-11.1) H 03/04/18 03:28 RBC 3.06 M/mcL (3.82-4.97) L 03/04/18 03:28 Hgb 9.0 g/dL (11.5-15.4) L D 03/04/18 03:28 Hct 26.8 % (35.3-44.9) L 03/04/18 03:28 RDW 16.4 % (11.5-14.5) H 03/04/18 03:28 MPV 8.9 fL (9.4-12.4) L 03/04/18 03:28 Band Neutrophils % 12.0 % (0-4) H 03/02/18 13:21 Neutrophils # 16.9 K/mcL (1.6-8.9) H 03/04/18 03:28 Reactive Lymphocytes Present (Not Present) A 03/02/18 13:21 Toxic Granulation Present (Not Present) A 03/02/18 13:21 Polychromasia 1+ (Not Present) A 03/02/18 03:56 PT 14.3 Seconds (9.4-12.1) H 02/28/18 13:16 ABG pH 7.48 pH Units (7.32-7.45) H 03/02/18 04:48 ABG pCO2 28 mmHg (35-45) L 03/02/18 04:48 ABG pO2 82 mmHg (85-104) L 03/02/18 04:48 Potassium 3.3 mEq/L (3.5-5.1) L 03/05/18 03:50 Chloride 113 mEq/L (98-107) H 03/05/18 03:50 BUN 51 mg/dL (8-23) H 03/05/18 03:50 Creatinine 1.44 mg/dL (0.60-1.20) H 03/05/18 03:50 Est GFR ( Amer) 44 (> 60) L 03/05/18 03:50 Est GFR (Non-Af Amer) 36 (> 60) L 03/05/18 03:50 BUN/Creatinine Ratio 35 (6-26) H 03/05/18 03:50 Glucose 167 mg/dL (70-105) H 03/05/18 03:50 POC Glucose 141 mg/dL (70-99) H 03/04/18 23:26 Calculated Osmolality 313 (280-300) H 03/05/18 03:50 Uric Acid 8.2 mg/dL (2.3-7.6) H 03/03/18 08:15 Calcium 8.1 mg/dL (8.6-10.3) L 03/05/18 03:50 AST 11 Units/L (13-39) L 03/02/18 13:21 Serum Total Protein 4.7 g/dL (6.4-8.9) L 03/02/18 13:21 Albumin 2.0 g/dL (3.5-5.7) L 03/03/18 15:00 Globulin 2.2 g/dL (2.4-3.5) L 03/02/18 13:21 Prealbumin 7.2 mg/dL (17.0-34.0) L 03/03/18 05:29 Lipase 5 Units/L (11-82) L 02/28/18 13:16 Urine Clarity Turbid (Clear) A 03/03/18 08:40 Ur Specific [place] > 1.030 (1.010-1.025) H 03/03/18 08:40 Urine Protein 100 mg/dL (Neg-Trace) H 03/03/18 08:40 Urine Ketones 15 mg/dL (Negative) H 03/03/18 08:40 Urine Blood Large (Negative) H 03/03/18 08:40 Urine Bilirubin Small (Negative) H 03/03/18 08:40 Ur Leukocyte Esterase Trace (Negative) H 03/03/18 08:40 Urine Microscopic RBC 50-100 per hpf (0-3) H 03/03/18 08:40 Urine Microscopic WBC 5-15 per hpf (0-3) H 03/03/18 08:40 Ur Squamous Epith Cells Moderate per lpf (None-Few) H 03/03/18 08:40 Ur Culture Indicated? YES (NO) A 03/03/18 08:40 - Microbiology Findings Microbiology Findings: Microbiology, Last 48 Hours 03/03/18 08:40 Urine Culture - Preliminary Urine,Clean Catch No growth. 03/03/18 08:22 Blood Culture - Preliminary Peripheral Venipuncture Culture is incubating and being continuously monitored for growth. Final report to follow. 03/03/18 08:15 Blood Culture - Preliminary Peripheral Venipuncture Culture is incubating and being continuously monitored for growth. Final report to follow. - Clinical Findings Intake & Output: Intake & Output 03/04/18 03/04/18 03/05/18 15:59 23:59 07:59 Intake Total 1100 / 1100 100 / 100 1250 / 1250 Output Total 1290 / 1290 300 / 300 550 / 550 Balance -190 / -190 -200 / -200 700 / 700 Weight 114.6 kg - VTE Documentation of Mechanical Device: Intermittent pneumatic compression device Consult Discharge Plan - Plan Referrals: Concha Rodriguez DO [Primary Care Provider] -
[2018-03-05] MEDS: Chlorhexidine Rinse 15 ML MOUTHWASH MM SCH ×2 (07:54→21:22)
[2018-03-05] MEDS: Pantoprazole 40 MG VIAL IVP SCH (07:57)
[2018-03-05 08:15] LABS: Eosinophils % 0.2 %; Hematocrit 25.8 % (35.3-44.9); Hemoglobin 8.3 g/dL (11.5-15.4); Immature Granulocytes % 1.4 % (0-4); Lymphocytes # 0.5 K/mcL (0.6-4.6); Lymphocytes % 4.8 %; Mean Corpuscular HGB Conc 32.2 g/dL (31.6-35.5); Mean Corpuscular Hemoglobin 28.2 pg (28.0-33.3); Mean Corpuscular Volume 87.8 fL (83.0-100.0); Mean Platelet Volume 8.9 fL (9.4-12.4); Monocytes # 0.5 K/mcL (0.0-1.3); Monocytes % 4.4 %; Neutrophils # 10.1 K/mcL (1.6-8.9); Platelet Count 203 K/mcL (140-400); Red Blood Count 2.94 M/mcL (3.82-4.97); Red Cell Distribution Width 16.4 % (11.5-14.5); Segmented Neutrophils % 89.2 %
[2018-03-05] MEDS ORDERED: Ampicillin/Sulbactam 3,000 MG in 0.9 % Sodium Chloride Mini Bag 100 ML IVPB SCH (09:00)
--- NOTE | 2018-03-05 09:47 | General Surgery Progress Note ---
<Chase Reyes - Last Filed: 03/05/18 10:18> Date of Encounter: 03/05/18 Time of Encounter: 09:25 - Assessment and Plan (1) Large bowel obstruction Current Visit: Yes Status: Acute 72 YO F s/p day 4 for colon resection with ostomy placement. Patient doing better today. Urine output via catheter is 700 and 1405. Stool output via ostomy is 200 today. - GI: No ostomy intervention required - pink, minor amount mucous, stool output - Pulm: Continue oxygenation on room air - Patient's is doing well off ventilator with O2 saturation at 96% this AM - Diet: Continue NPO, but allowed to have ice chips - WBC count is elevated today at 18.5 down from 23.7, 27.3 - will continue Unasyn ABX regmien and continue to monitor with serial CBC and CMP - IVF - PT/OT consulted today for ambulation - Serial abdominal exams - Continue pain management with dilaudid and oxy PRN. - Okay to transfer to (2) GISELLA (acute kidney injury) Current Visit: Yes Status: Acute Assessment: Kidney function appears to be improving - Patient regained urinary output, 185 yesterday, 565 today. GFR 18 increased from 16 yeterday. Creatinine elevated at 2.6 down from 3.41 yesterday. - Continue IVF and catheter use. Subjective Patient reports: no new complaints, feels better, flatus, no bowel movement Narrative: Patient is in moderate distress, but doing better from yesterday. Per nurse, passing gas but no BM. Urine output from cath was 1405 yesterday and 700mL today. Denies N/V, reports abdominal tednerness. Objective Vital Signs - Last 8 Hours Temp Pulse Resp BP Pulse Ox 03/05/18 09:00 89 19 146/82 94 03/05/18 08:24 99.6 F 03/05/18 08:00 87 18 144/81 94 03/05/18 07:30 98 20 137/87 93 03/05/18 06:00 97 21 130/80 93 03/05/18 05:00 93 18 123/78 94 03/05/18 04:37 99.7 F H 03/05/18 04:00 94 18 131/79 96 03/05/18 03:56 93 07/25/18 03:00 95 17 129/79 94 03/05/18 02:00 102 22 131/97 95 Intake and Output 03/04/18 03/05/18 03/05/18 23:59 07:59 15:59 Intake Total 100 / 100 1250 / 1250 382 / 382 Output Total 300 / 300 550 / 550 350 / 350 Balance -200 / -200 700 / 700 32 / 32 Intake: IV Fluids 100 / 100 1250 / 1250 362 / 362 Lactated Ringers 1,000 ML @ 125 1000 / 1000 mls/hr IVC .Q8H [facility] Rx#: [id number] Unasyn 3,000 MG In 0.9 % Sodium 100 / 100 100 / 100 Chloride (Mini-Bag +) 100 ML @ 200 mls/hr IVPB Q6H [facility] Rx#: [id number] Intralipid 20% 250 ML @ 21 mls/ 250 / 250 hr IVPB DAILY@1700 [facility] Rx#: [id number] KCl 20 MEQ Xylocaine 2 ML In 262 / 262 Dextrose 5% 250 ML @ 131 mls/hr IVPB ONCE ONE Rx#:[id number] Oral 20 / 20 Output: Stool 200 / 200 Catheter 300 / 300 550 / 550 150 / 150 Other: Weight 114.6 kg Blood Glucose* 141 Patient Weight 03/05/18 23:59 Weight 114.6 kg - General physical appearance well developed, moderate distress - Respiratory normal expansion, normal respiratory effort - Cardiovascular Cardiovascular exam: Present: RRR - Abdomen Abdomen: Present: bowel sounds present, tender Abdominal Tenderness: diffusely - Incision Incision: Present: clean and dry (ostomy is pink and has mucous ), intact - Neurologic CN 2-12 grossly intact - Psychiatric oriented to time, oriented to person, oriented to place, speech is normal, memory intact - Labs 03/05/18 08:05 03/05/18 03:50 Diabetes panel 03/05/18 Range/Units 03:50 Sodium 143 (136-145) mEq/L Potassium 3.3 L (3.5-5.1) mEq/L Chloride 113 H (98-107) mEq/L Carbon Dioxide 25 (23-29) mEq/L BUN 51 H (8-23) mg/dL Creatinine 1.44 H (0.60-1.20) mg/dL Glucose 167 H (70-105) mg/dL Calcium 8.1 L (8.6-10.3) mg/dL Calcium panel 03/05/18 Range/Units 03:50 Calcium 8.1 L (8.6-10.3) mg/dL Phosphorus 2.9 (2.7-4.5) mg/dL Pituitary panel 03/05/18 Range/Units 03:50 Sodium 143 (136-145) mEq/L Potassium 3.3 L (3.5-5.1) mEq/L Chloride 113 H (98-107) mEq/L Carbon Dioxide 25 (23-29) mEq/L BUN 51 H (8-23) mg/dL Creatinine 1.44 H (0.60-1.20) mg/dL Glucose 167 H (70-105) mg/dL Calcium 8.1 L (8.6-10.3) mg/dL Adrenal panel 03/05/18 Range/Units 03:50 Sodium 143 (136-145) mEq/L Potassium 3.3 L (3.5-5.1) mEq/L Chloride 113 H (98-107) mEq/L Carbon Dioxide 25 (23-29) mEq/L BUN 51 H (8-23) mg/dL Creatinine 1.44 H (0.60-1.20) mg/dL Glucose 167 H (70-105) mg/dL Calcium 8.1 L (8.6-10.3) mg/dL - VTE Documentation of Mechanical Device: Intermittent pneumatic compression device Consult Discharge Plan - Plan Referrals: Concha Rodriguez DO [Primary Care Provider] - <Cristian Braden - Last Filed: 03/06/18 21:47> Date of Encounter: 03/05/18 Objective Vital Signs - Last 8 Hours Temp Pulse Resp BP Pulse Ox 03/06/18 19:31 98.1 F 81 15 129/73 98 03/06/18 14:56 97.8 F 76 19 138/85 97 Intake and Output 03/06/18 03/06/18 03/06/18 07:59 15:59 23:59 Intake Total 370 / 370 200 / 200 940 / 940 Output Total 1175 / 1175 875 / 875 350 / 350 Balance -805 / -805 -675 / -675 590 / 590 Intake: IV Fluids 350 / 350 200 / 200 100 / 100 Ofirmev 1,000 mg/100 ml 1,000 100 / 100 mg In 100 ml @ 400 mls/hr IVPB Q6HR [facility] Rx#:[id number] Unasyn 3,000 MG In 0.9 % Sodium 100 / 100 100 / 100 100 / 100 Chloride (Mini-Bag +) 100 ML @ 200 mls/hr IVPB Q6H [facility] Rx#: [id number] Intralipid 20% 250 ML @ 21 mls/ 250 / 250 hr IVPB DAILY@1700 [facility] Rx#: [id number] Oral 20 / 20 840 / 840 Output: Stool 100 / 100 200 / 200 Catheter 1075 / 1075 675 / 675 350 / 350 Other: Meal Lunch Percent of Meal Consumed 0% Stool Consistency liquid Stool Characteristics Normal for Patient Mucoid Stool Color Brown # Bowel Movements 0 Blood Glucose* 122 129 115 - Labs 03/06/18 07:10 03/06/18 07:10 Diabetes panel 03/06/18 Range/Units 07:10 Sodium 144 (136-145) mEq/L Potassium 3.1 L (3.5-5.1) mEq/L Chloride 112 H (98-107) mEq/L Carbon Dioxide 25 (23-29) mEq/L BUN 33 H (8-23) mg/dL Creatinine 0.87 (0.60-1.20) mg/dL Glucose 132 H (70-105) mg/dL Calcium 8.1 L (8.6-10.3) mg/dL AST 11 L (13-39) Units/L ALT 9 (7-52) Units/L Alkaline Phosphatase 69 (34-104) Units/L Albumin 2.0 L (3.5-5.7) g/dL Calcium panel 03/06/18 Range/Units 07:10 Calcium 8.1 L (8.6-10.3) mg/dL Albumin 2.0 L (3.5-5.7) g/dL Pituitary panel 03/06/18 Range/Units 07:10 Sodium 144 (136-145) mEq/L Potassium 3.1 L (3.5-5.1) mEq/L Chloride 112 H (98-107) mEq/L Carbon Dioxide 25 (23-29) mEq/L BUN 33 H (8-23) mg/dL Creatinine 0.87 (0.60-1.20) mg/dL Glucose 132 H (70-105) mg/dL Calcium 8.1 L (8.6-10.3) mg/dL Adrenal panel 03/06/18 Range/Units 07:10 Sodium 144 (136-145) mEq/L Potassium 3.1 L (3.5-5.1) mEq/L Chloride 112 H (98-107) mEq/L Carbon Dioxide 25 (23-29) mEq/L BUN 33 H (8-23) mg/dL Creatinine 0.87 (0.60-1.20) mg/dL Glucose 132 H (70-105) mg/dL Calcium 8.1 L (8.6-10.3) mg/dL Total Bilirubin 0.3 (0.3-1.0) mg/dL AST 11 L (13-39) Units/L ALT 9 (7-52) Units/L Alkaline Phosphatase 69 (34-104) Units/L Albumin 2.0 L (3.5-5.7) g/dL - Attending Attestation I examined this patient and my medical decision-making was reviewed with the Resident Physician. I agree with the documented findings, disposition and treatment plan as described except to the extent set forth below. The patient is seen and evaluated on morning rounds with the resident. Her overall condition is stable. We can advance her diet. Her ostomy is pink and functioning. She may move out of the intensive care unit. She is making slow but steady progress. Renal function has normalized Cristian Braden MD FACS
[2018-03-05] MEDS ORDERED: D5% in Water 1,000 ML IVC PRN (12:44)
[2018-03-05] MEDS ORDERED: Clinimix E 5%-15% SOLUTION 2,000 ML with MVI, adult with vitamin K 10 ML IVC SCH ×2 (12:44→17:00)
[2018-03-05] MEDS ORDERED: Dextrose Gel 15 GM/37.5 ML TUBE PO PRN ×2 (12:44)
[2018-03-05] MEDS ORDERED: *HR* Dextrose 50 % in Water (Syg) 50 ML SYRINGE IVP PRN (12:44)
[2018-03-05] MEDS ORDERED: OXYCODONE Oral CONC 10 MG/0.5 ML ORAL.SYG SL PRN (12:44)
[2018-03-05] MEDS ORDERED: D10% in Water 500 ML IVC PRN (12:44)
[2018-03-05] MEDS: OXYCODONE Oral CONC 10 MG/0.5 ML ORAL.SYG SL PRN (14:58)
[2018-03-05] MEDS: Ampicillin/Sulbactam 3,000 MG in 0.9 % Sodium Chloride Mini Bag 100 ML IVPB SCH ×2 (15:04→21:22)
[2018-03-05] MEDS ORDERED: 0.9 % Sodium Chloride Mini Bag 100 ML ONE (15:05)
[2018-03-05] MEDS: Clinimix E 5%-15% SOLUTION 2,000 ML with MVI, adult with vitamin K 10 ML IVC SCH (21:00)
[2018-03-05] MEDS: Ondansetron 4 MG/2 ML VIAL IVP PRN (21:21)
[2018-03-06] MEDS: Insulin LISPRO 300 UNITS/3 ML VIAL SQ SCH ×4 (00:46→20:24)
[2018-03-06] MEDS: OXYCODONE Oral CONC 10 MG/0.5 ML ORAL.SYG SL PRN ×2 (00:54→11:08)
[2018-03-06] MEDS: Ampicillin/Sulbactam 3,000 MG in 0.9 % Sodium Chloride Mini Bag 100 ML IVPB SCH ×4 (03:07→20:53)
[2018-03-06] MEDS: Ondansetron 4 MG/2 ML VIAL IVP PRN (03:12)
[2018-03-06] MEDS: *HR* Heparin 5,000 UNIT/ML VIAL SQ SCH ×2 (05:45→18:20)
[2018-03-06 07:42] LABS: Basophils % 0.1 %; Eosinophils # 0.1 K/mcL (0.0-0.6); Eosinophils % 0.9 %; Hemoglobin 8.5 g/dL (11.5-15.4); Immature Granulocytes % 2.4 % (0-4); Lymphocytes # 0.7 K/mcL (0.6-4.6); Lymphocytes % 5.9 %; Mean Corpuscular HGB Conc 32.7 g/dL (31.6-35.5); Mean Corpuscular Hemoglobin 28.9 pg (28.0-33.3); Mean Corpuscular Volume 88.4 fL (83.0-100.0); Mean Platelet Volume 9.1 fL (9.4-12.4); Monocytes # 0.8 K/mcL (0.0-1.3); Neutrophils # 9.6 K/mcL (1.6-8.9); Platelet Count 205 K/mcL (140-400); Red Blood Count 2.94 M/mcL (3.82-4.97); Red Cell Distribution Width 16.3 % (11.5-14.5); Segmented Neutrophils % 83.7 %
[2018-03-06 08:01] LABS: Alanine Aminotransferase 9 Units/L (7-52); Albumin/Globulin Ratio 0.7 (1.1-2.2); Alkaline Phosphatase 69 Units/L (34-104); Aspartate Amino Transferase 11 Units/L (13-39); BUN/Creatinine Ratio 38 (6-26); Bilirubin,Total 0.3 mg/dL (0.3-1.0); Blood Urea Nitrogen 33 mg/dL (8-23); Calcium 8.1 mg/dL (8.6-10.3); Carbon Dioxide 25 mEq/L (23-29); Chloride 112 mEq/L (98-107); Globulin 2.7 g/dL (2.4-3.5); Glucose 132 mg/dL (70-105); Osmolality,Calculated 307 (280-300); Potassium 3.1 mEq/L (3.5-5.1); Sodium 144 mEq/L (136-145); Total Protein 4.7 g/dL (6.4-8.9); eGFR For Non-African Americans > 60 (> 60)
[2018-03-06] MEDS: Chlorhexidine Rinse 15 ML MOUTHWASH MM SCH ×2 (09:51→20:43)
[2018-03-06] MEDS: Pantoprazole 40 MG VIAL IVP SCH (09:51)
[2018-03-06] MEDS: Acetaminophen IV 1,000 MG/100 ML INFUS..BTL IVPB SCH ×2 (11:43→20:38)
[2018-03-06] MEDS ORDERED: Potassium Chloride 40 MEQ, Lidocaine 1% 2 ML in D5% in Water 500 ML IVPB ONE (12:29)
[2018-03-06] MEDS ORDERED: Clinimix E 5%-15% SOLUTION 2,000 ML with MVI, adult with vitamin K 10 ML IVC SCH (17:00)
[2018-03-06] MEDS: Ringers Solution, Lactated 1,000 ML IVC SCH (18:18)
[2018-03-06] MEDS: Clinimix E 5%-15% SOLUTION 2,000 ML with MVI, adult with vitamin K 10 ML IVC SCH (18:23)
[2018-03-07] MEDS: Insulin LISPRO 300 UNITS/3 ML VIAL SQ SCH ×4 (00:45→17:27)
[2018-03-07] MEDS: Acetaminophen IV 1,000 MG/100 ML INFUS..BTL IVPB SCH ×4 (03:06→21:09)
[2018-03-07] MEDS: Ampicillin/Sulbactam 3,000 MG in 0.9 % Sodium Chloride Mini Bag 100 ML IVPB SCH ×4 (03:37→20:19)
[2018-03-07 04:38] LABS: BUN/Creatinine Ratio 37 (6-26); Blood Urea Nitrogen 26 mg/dL (8-23); Calcium 7.9 mg/dL (8.6-10.3); Carbon Dioxide 26 mEq/L (23-29); Chloride 110 mEq/L (98-107); Glucose 114 mg/dL (70-105); Magnesium 1.7 mg/dL (1.6-2.6); Osmolality,Calculated 298 (280-300); Potassium 3.3 mEq/L (3.5-5.1); Sodium 141 mEq/L (136-145); eGFR For Non-African Americans > 60 (> 60)
[2018-03-07] MEDS: *HR* Heparin 5,000 UNIT/ML VIAL SQ SCH ×2 (06:18→17:26)
[2018-03-07] MEDS: OXYCODONE Oral CONC 10 MG/0.5 ML ORAL.SYG SL PRN ×3 (06:21→19:43)
[2018-03-07] MEDS: Chlorhexidine Rinse 15 ML MOUTHWASH MM SCH ×2 (08:01→20:19)
[2018-03-07] MEDS: Pantoprazole 40 MG VIAL IVP SCH (08:01)
--- NOTE | 2018-03-07 10:19 | General Surgery Progress Note ---
<Chase Reyes - Last Filed: 03/07/18 10:21> Date of Encounter: 03/07/18 Time of Encounter: 10:17 - Assessment and Plan (1) Large bowel obstruction Current Visit: Yes Status: Acute 72 YO F s/p day 5 for colon resection with ostomy placement. Patient doing better today. Urine output via catheter is 700 and 1405. Stool output via ostomy is 200 today. - GI: No ostomy intervention required - pink, minor amount mucous, stool output - Pulm: Continue oxygenation on room air - Patient's is doing well off ventilator with O2 saturation at 96% this AM - Diet: Continue NPO, but allowed to have ice chips - continue Unasyn ABX regmien and continue to monitor with serial CBC and CMP - IVF - Serial abdominal exams - Continue pain management with dilaudid and oxy PRN. (2) GISELLA (acute kidney injury) Current Visit: Yes Status: Acute Assessment: Kidney function appears to be improving - Patient regained urinary output, 185 yesterday, 565 today. GFR 18 increased from 16 yeterday. Creatinine elevated at 2.6 down from 3.41 yesterday. - Continue IVF and catheter use. Subjective Patient reports: feels better, still having pain, tolerating liquids well, flatus, no bowel movement Narrative: Patient is in NAD. Reports passing minor amount of gas. She denies N/V. Tolerating diet. Objective Vital Signs - Last 8 Hours Temp Pulse Resp BP Pulse Ox 03/07/18 06:56 98.0 F 78 15 152/84 94 03/07/18 04:22 98.6 F 80 15 149/85 95 Intake and Output 03/06/18 03/07/18 03/07/18 23:59 07:59 15:59 Intake Total 1662 / 1662 890 / 890 1692 / 1692 Output Total 350 / 350 1150 / 1150 Balance 1312 / 1312 -260 / -260 1692 / 1692 Intake: IV Fluids 822 / 822 450 / 450 1692 / 1692 Clinimix E 5%-15% SOLUTION 2, 1142 / 1142 000 ML @ 83.3 mls/hr IVC .Q24H [facility] with M.v.i. Adult 10 ml Rx# :[id number] Lactated Ringers 1,000 ML @ 50 350 / 350 mls/hr IVC .Q20H [facility] Rx#: [id number] Ofirmev 1,000 mg/100 ml 1,000 100 / 100 100 / 100 100 / 100 mg In 100 ml @ 400 mls/hr IVPB Q6H [facility] Rx#:[id number] Unasyn 3,000 MG In 0.9 % Sodium 200 / 200 100 / 100 100 / 100 Chloride (Mini-Bag +) 100 ML @ 200 mls/hr IVPB Q6H [facility] Rx#: [id number] Intralipid 20% 250 ML @ 21 mls/ 250 / 250 hr IVPB DAILY@1700 [facility] Rx#: [id number] Oral 840 / 840 440 / 440 Output: Stool 350 / 350 Catheter 350 / 350 800 / 800 Other: Meal Lunch Percent of Meal Consumed 0% Stool Color Green Weight 116.4 kg Blood Glucose* 115 139 139 Patient Weight 03/07/18 23:59 Weight 116.4 kg - General physical appearance well developed, moderate distress - Respiratory normal expansion, normal respiratory effort - Cardiovascular Cardiovascular exam: Present: RRR, NR - Abdomen Abdomen: Present: bowel sounds present, soft Abdominal Tenderness: diffusely (expected post surgical tendrness) - Incision Incision: Present: clean and dry, intact (ostomy is pink and draining stool) - Neurologic CN 2-12 grossly intact - Psychiatric oriented to time, oriented to person, oriented to place, speech is normal, memory intact - Labs 03/06/18 07:10 03/07/18 03:35 Diabetes panel 03/07/18 Range/Units 03:35 Sodium 141 (136-145) mEq/L Potassium 3.3 L (3.5-5.1) mEq/L Chloride 110 H (98-107) mEq/L Carbon Dioxide 26 (23-29) mEq/L BUN 26 H (8-23) mg/dL Creatinine 0.70 (0.60-1.20) mg/dL Glucose 114 H (70-105) mg/dL Calcium 7.9 L (8.6-10.3) mg/dL Calcium panel 03/07/18 Range/Units 03:35 Calcium 7.9 L (8.6-10.3) mg/dL Phosphorus 2.0 L (2.7-4.5) mg/dL Pituitary panel 03/07/18 Range/Units 03:35 Sodium 141 (136-145) mEq/L Potassium 3.3 L (3.5-5.1) mEq/L Chloride 110 H (98-107) mEq/L Carbon Dioxide 26 (23-29) mEq/L BUN 26 H (8-23) mg/dL Creatinine 0.70 (0.60-1.20) mg/dL Glucose 114 H (70-105) mg/dL Calcium 7.9 L (8.6-10.3) mg/dL Adrenal panel 03/07/18 Range/Units 03:35 Sodium 141 (136-145) mEq/L Potassium 3.3 L (3.5-5.1) mEq/L Chloride 110 H (98-107) mEq/L Carbon Dioxide 26 (23-29) mEq/L BUN 26 H (8-23) mg/dL Creatinine 0.70 (0.60-1.20) mg/dL Glucose 114 H (70-105) mg/dL Calcium 7.9 L (8.6-10.3) mg/dL - VTE Documentation of Mechanical Device: Intermittent pneumatic compression device Consult Discharge Plan - Plan Referrals: Concha Rodriguez DO [Primary Care Provider] - <Domenic Arreola - Last Filed: 03/07/18 15:48> Date of Encounter: 03/07/18 Objective Vital Signs - Last 8 Hours Temp Pulse Resp BP Pulse Ox 03/07/18 14:28 98.3 F 83 14 176/96 96 03/07/18 11:20 98.1 F 76 19 171/86 98 Intake and Output 03/06/18 03/07/18 03/07/18 23:59 07:59 15:59 Intake Total 1662 / 1662 890 / 890 2729 / 2729 Output Total 350 / 350 1150 / 1150 850 / 850 Balance 1312 / 1312 -260 / -260 1879 / 187 Intake: IV Fluids 822 / 822 450 / 450 2729 / 2729 Clinimix E 5%-15% SOLUTION 2, 1629 / 1629 000 ML @ 83.3 mls/hr IVC .Q24H [facility] with M.v.i. Adult 10 ml Rx# :[id number] Lactated Ringers 1,000 ML @ 50 700 / 700 mls/hr IVC .Q20H [facility] Rx#: [id number] Ofirmev 1,000 mg/100 ml 1,000 100 / 100 100 / 100 200 / 200 mg In 100 ml @ 400 mls/hr IVPB Q6H [facility] Rx#:[id number] Unasyn 3,000 MG In 0.9 % Sodium 200 / 200 100 / 100 200 / 200 Chloride (Mini-Bag +) 100 ML @ 200 mls/hr IVPB Q6H [facility] Rx#: [id number] Intralipid 20% 250 ML @ 21 mls/ 250 / 250 hr IVPB DAILY@1700 [facility] Rx#: [id number] Oral 840 / 840 440 / 440 0 / 0 Output: Stool 350 / 350 200 / 200 Catheter 350 / 350 800 / 800 650 / 650 Other: Meal Lunch Percent of Meal Consumed 0% Stool Color Green Weight 116.4 kg Blood Glucose* 115 139 141 Patient Weight 03/07/18 23:59 Weight 116.4 kg - Labs 03/06/18 07:10 03/07/18 03:35 Diabetes panel 03/07/18 Range/Units 03:35 Sodium 141 (136-145) mEq/L Potassium 3.3 L (3.5-5.1) mEq/L Chloride 110 H (98-107) mEq/L Carbon Dioxide 26 (23-29) mEq/L BUN 26 H (8-23) mg/dL Creatinine 0.70 (0.60-1.20) mg/dL Glucose 114 H (70-105) mg/dL Calcium 7.9 L (8.6-10.3) mg/dL Calcium panel 03/07/18 Range/Units 03:35 Calcium 7.9 L (8.6-10.3) mg/dL Phosphorus 2.0 L (2.7-4.5) mg/dL Pituitary panel 03/07/18 Range/Units 03:35 Sodium 141 (136-145) mEq/L Potassium 3.3 L (3.5-5.1) mEq/L Chloride 110 H (98-107) mEq/L Carbon Dioxide 26 (23-29) mEq/L BUN 26 H (8-23) mg/dL Creatinine 0.70 (0.60-1.20) mg/dL Glucose 114 H (70-105) mg/dL Calcium 7.9 L (8.6-10.3) mg/dL Adrenal panel 03/07/18 Range/Units 03:35 Sodium 141 (136-145) mEq/L Potassium 3.3 L (3.5-5.1) mEq/L Chloride 110 H (98-107) mEq/L Carbon Dioxide 26 (23-29) mEq/L BUN 26 H (8-23) mg/dL Creatinine 0.70 (0.60-1.20) mg/dL Glucose 114 H (70-105) mg/dL Calcium 7.9 L (8.6-10.3) mg/dL - Attending Attestation I have personally seen and examined the patient. I have reviewed pertinent labs , imaging, progress notes, including this one. I agree with the above assessment and plan and wish to include the following... AF VSS; good UOP; tolerating CLD; pain improving; PT/OT working with patient; states she still feels weak; abd tender, but non peritoneal; ostomy is functioning do not advance diet; needs continued PT/OT eval - not ready to go home in my opinion OOBTC IS usage d/c chanel to encourage activity; may need besdie commode
[2018-03-07] MEDS: Ringers Solution, Lactated 1,000 ML IVC SCH (16:00)
[2018-03-07] MEDS ORDERED: Clinimix E 5%-15% SOLUTION 2,000 ML with MVI, adult with vitamin K 10 ML IVC SCH (17:00)
[2018-03-08] MEDS: Insulin LISPRO 300 UNITS/3 ML VIAL SQ SCH ×4 (00:44→19:12)
[2018-03-08] MEDS: OXYCODONE Oral CONC 10 MG/0.5 ML ORAL.SYG SL PRN ×4 (01:23→23:00)
[2018-03-08] MEDS: Acetaminophen IV 1,000 MG/100 ML INFUS..BTL IVPB SCH ×2 (02:39→10:34)
[2018-03-08] MEDS: Ampicillin/Sulbactam 3,000 MG in 0.9 % Sodium Chloride Mini Bag 100 ML IVPB SCH ×4 (03:35→20:38)
[2018-03-08 03:58] LABS: BUN/Creatinine Ratio 27 (6-26); Blood Urea Nitrogen 19 mg/dL (8-23); Carbon Dioxide 28 mEq/L (23-29); Chloride 108 mEq/L (98-107); Glucose 101 mg/dL (70-105); Magnesium 1.6 mg/dL (1.6-2.6); Osmolality,Calculated 290 (280-300); Phosphorous 2.1 mg/dL (2.7-4.5); Potassium 3.2 mEq/L (3.5-5.1); Sodium 139 mEq/L (136-145); eGFR For Non-African Americans > 60 (> 60)
[2018-03-08] MEDS: *HR* Heparin 5,000 UNIT/ML VIAL SQ SCH ×2 (06:02→16:33)
[2018-03-08] MEDS: Pantoprazole 40 MG VIAL IVP SCH (09:51)
[2018-03-08] MEDS: Chlorhexidine Rinse 15 ML MOUTHWASH MM SCH ×2 (09:51→20:38)
[2018-03-08] MEDS: Ringers Solution, Lactated 1,000 ML IVC SCH (14:53)
--- NOTE | 2018-03-08 15:35 | General Surgery Progress Note ---
<StephanieDonAmador W - Last Filed: 03/08/18 15:50> Date of Encounter: 03/08/18 Time of Encounter: 09:00 - Assessment and Plan (1) Large bowel obstruction Current Visit: Yes Status: Acute 72 YO F POD #5 for colon resection with ostomy placement. Patient doing better today Good ostomy activity; 300 documented today Continue oxygenation continue antibiotics continue clear liquid diet with ensure supplementation continue PT/OT patient still feels weak encourage ambulation and oobtc D/C LR CBC and BMP follow continue pain management (2) Hypokalemia Current Visit: Yes Status: Acute Potassium 3.2 today Potassium chloride 40 meq PO 2 doses 4 hours apart follow up CBC in the am Subjective Patient reports: still having pain, tolerating liquids well, bowel movement ( colostomy), afebrile Narrative: Patient states she is doing okay today. She still feels very weak. continues to work with PT and OT. good colostomy activity. denies fever, chills, or night sweats. denies chest pain or SOB. Denies n/v Objective Vital Signs - Last 8 Hours Temp Pulse Resp BP Pulse Ox 03/08/18 14:49 98.8 F 85 15 142/86 95 03/08/18 11:02 98.9 F 84 15 148/75 98 Intake and Output 03/07/18 03/08/18 03/08/18 23:59 07:59 15:59 Intake Total 678 / 678 780 / 780 1100 / 1100 Output Total 300 / 300 0 / 0 Balance 678 / 678 480 / 480 1100 / 1100 Intake: IV Fluids 438 / 438 300 / 300 1100 / 1100 Clinimix E 5%-15% SOLUTION 2, 138 / 138 000 ML @ 83.3 mls/hr IVC .Q24H [facility] with M.v.i. Adult 10 ml Rx# :[id number] Lactated Ringers 1,000 ML @ 50 300 / 300 1000 / 1000 mls/hr IVC .Q20H [facility] Rx#: [id number] Ofirmev 1,000 mg/100 ml 1,000 100 / 100 mg In 100 ml @ 400 mls/hr IVPB Q6H [facility] Rx#:[id number] Unasyn 3,000 MG In 0.9 % Sodium 200 / 200 100 / 100 Chloride (Mini-Bag +) 100 ML @ 200 mls/hr IVPB Q6H [facility] Rx#: [id number] Oral 240 / 240 480 / 480 0 / 0 Output: Urine 0 / 0 0 / 0 Stool 300 / 300 Other: Stool Color Brown Yellow Green # Voids 1 # Urine Diapers 1 # Bowel Movements 0 Weight 118.4 kg Blood Glucose* 97 98 Patient Weight 03/08/18 23:59 Weight 118.4 kg - General physical appearance well nourished, moderate distress, moderate pain - Eyes normal ocular movement - ENT atraumatic, normocephalic, CN 2-12 grossly intact - Neck Neck exam: no masses - Respiratory normal expansion, normal respiratory effort, clear to auscultation - Cardiovascular Cardiovascular exam: Present: RRR, no murmurs/rubs/gallops - Abdomen Abdomen: Present: bowel sounds present, soft, tender Abdominal Tenderness: diffusely - Neurologic CN 2-12 grossly intact, normal coordination, normal sensation - Musculoskeletal normal posture - Psychiatric speech is normal, memory intact - Labs 03/06/18 07:10 03/08/18 03:21 Diabetes panel 03/08/18 Range/Units 03:21 Sodium 139 (136-145) mEq/L Potassium 3.2 L (3.5-5.1) mEq/L Chloride 108 H (98-107) mEq/L Carbon Dioxide 28 (23-29) mEq/L BUN 19 (8-23) mg/dL Creatinine 0.71 (0.60-1.20) mg/dL Glucose 101 (70-105) mg/dL Calcium 8.0 L (8.6-10.3) mg/dL Calcium panel 03/08/18 Range/Units 03:21 Calcium 8.0 L (8.6-10.3) mg/dL Phosphorus 2.1 L (2.7-4.5) mg/dL Pituitary panel 03/08/18 Range/Units 03:21 Sodium 139 (136-145) mEq/L Potassium 3.2 L (3.5-5.1) mEq/L Chloride 108 H (98-107) mEq/L Carbon Dioxide 28 (23-29) mEq/L BUN 19 (8-23) mg/dL Creatinine 0.71 (0.60-1.20) mg/dL Glucose 101 (70-105) mg/dL Calcium 8.0 L (8.6-10.3) mg/dL Adrenal panel 03/08/18 Range/Units 03:21 Sodium 139 (136-145) mEq/L Potassium 3.2 L (3.5-5.1) mEq/L Chloride 108 H (98-107) mEq/L Carbon Dioxide 28 (23-29) mEq/L BUN 19 (8-23) mg/dL Creatinine 0.71 (0.60-1.20) mg/dL Glucose 101 (70-105) mg/dL Calcium 8.0 L (8.6-10.3) mg/dL - VTE Documentation of Mechanical Device: Intermittent pneumatic compression device Consult Discharge Plan - Plan Referrals: Concha Rodriguez, [Primary Care Provider] - <Oswaldo Garza - Last Filed: 03/09/18 13:13> Date of Encounter: 03/08/18 Objective Vital Signs - Last 8 Hours Temp Pulse Resp BP Pulse Ox 03/09/18 11:06 98.9 F 83 18 127/81 98 03/09/18 07:32 98.6 F 86 18 142/74 96 Intake and Output 03/08/18 03/09/18 03/09/18 23:59 07:59 15:59 Intake Total 220 / 220 800 / 800 340 / 340 Output Total 450 / 450 450 / 450 175 / 175 Balance -230 / -230 350 / 350 165 / 165 Intake: IV Fluids 100 / 100 100 / 100 100 / 100 Unasyn 3,000 MG In 0.9 % Sodium 100 / 100 100 / 100 100 / 100 Chloride (Mini-Bag +) 100 ML @ 200 mls/hr IVPB Q6H [facility] Rx#: [id number] Oral 120 / 120 700 / 700 240 / 240 Output: Urine 0 / 0 0 / 0 0 / 0 Stool 450 / 450 450 / 450 175 / 175 Other: Meal Dinner Breakfast Percent of Meal Consumed 25% 20% Stool Consistency loose Stool Color Brown Yellow Green # Urine Diapers 1 2 Weight 119.6 kg Blood Glucose* 119 105 Patient Weight 03/09/18 23:59 Weight 119.6 kg - Labs 03/09/18 03:16 03/09/18 03:16 Diabetes panel 03/09/18 Range/Units 03:16 Sodium 141 (136-145) mEq/L Potassium 3.4 L (3.5-5.1) mEq/L Chloride 108 H (98-107) mEq/L Carbon Dioxide 29 (23-29) mEq/L BUN 12 (8-23) mg/dL Creatinine 0.67 (0.60-1.20) mg/dL Glucose 103 (70-105) mg/dL Calcium 7.9 L (8.6-10.3) mg/dL Calcium panel 03/09/18 Range/Units 03:16 Calcium 7.9 L (8.6-10.3) mg/dL Pituitary panel 03/09/18 Range/Units 03:16 Sodium 141 (136-145) mEq/L Potassium 3.4 L (3.5-5.1) mEq/L Chloride 108 H (98-107) mEq/L Carbon Dioxide 29 (23-29) mEq/L BUN 12 (8-23) mg/dL Creatinine 0.67 (0.60-1.20) mg/dL Glucose 103 (70-105) mg/dL Calcium 7.9 L (8.6-10.3) mg/dL Adrenal panel 03/09/18 Range/Units 03:16 Sodium 141 (136-145) mEq/L Potassium 3.4 L (3.5-5.1) mEq/L Chloride 108 H (98-107) mEq/L Carbon Dioxide 29 (23-29) mEq/L BUN 12 (8-23) mg/dL Creatinine 0.67 (0.60-1.20) mg/dL Glucose 103 (70-105) mg/dL Calcium 7.9 L (8.6-10.3) mg/dL - Attending Attestation I reviewed the above assessment and evaluation agree with the above plan. Continue with full liquids at this time. Hyperkalemia to be replaced.
[2018-03-09] MEDS: Insulin LISPRO 300 UNITS/3 ML VIAL SQ SCH ×2 (01:07→07:16)
[2018-03-09] MEDS: OXYCODONE Oral CONC 10 MG/0.5 ML ORAL.SYG SL PRN ×3 (02:08→17:24)
[2018-03-09] MEDS: Ringers Solution, Lactated 1,000 ML IVC SCH (03:05)
[2018-03-09] MEDS: Acetaminophen IV 1,000 MG/100 ML INFUS..BTL IVPB SCH (03:05)
[2018-03-09] MEDS: Ampicillin/Sulbactam 3,000 MG in 0.9 % Sodium Chloride Mini Bag 100 ML IVPB SCH ×4 (03:15→20:35)
[2018-03-09 03:40] LABS: Basophils % 0.1 %; Eosinophils # 0.2 K/mcL (0.0-0.6); Eosinophils % 1.9 %; Hematocrit 24.7 % (35.3-44.9); Immature Granulocytes % 4.6 % (0-4); Lymphocytes % 9.1 %; Mean Corpuscular HGB Conc 32.4 g/dL (31.6-35.5); Mean Corpuscular Volume 89.5 fL (83.0-100.0); Mean Platelet Volume 9.6 fL (9.4-12.4); Monocytes # 0.8 K/mcL (0.0-1.3); Monocytes % 7.2 %; Neutrophils # 8.8 K/mcL (1.6-8.9); Nucleated Red Blood Cells 0.2 /100 WBC (0); Platelet Count 270 K/mcL (140-400); Red Blood Count 2.76 M/mcL (3.82-4.97); Red Cell Distribution Width 15.7 % (11.5-14.5); Segmented Neutrophils % 77.1 %
[2018-03-09 04:05] LABS: BUN/Creatinine Ratio 18 (6-26); Blood Urea Nitrogen 12 mg/dL (8-23); Calcium 7.9 mg/dL (8.6-10.3); Carbon Dioxide 29 mEq/L (23-29); Chloride 108 mEq/L (98-107); Glucose 103 mg/dL (70-105); Osmolality,Calculated 292 (280-300); Potassium 3.4 mEq/L (3.5-5.1); Sodium 141 mEq/L (136-145); eGFR For Non-African Americans > 60 (> 60)
[2018-03-09] MEDS: *HR* Heparin 5,000 UNIT/ML VIAL SQ SCH ×2 (06:24→17:21)
[2018-03-09] MEDS: Pantoprazole 40 MG VIAL IVP SCH (08:09)
[2018-03-09] MEDS: Chlorhexidine Rinse 15 ML MOUTHWASH MM SCH ×2 (08:10→20:35)
--- NOTE | 2018-03-09 09:01 | General Surgery Progress Note ---
<Amador Brown W - Last Filed: 03/09/18 11:38> Date of Encounter: 03/09/18 Time of Encounter: 08:57 - Assessment and Plan (1) Large bowel obstruction Current Visit: Yes Status: Acute 72 YO F POD #6 for colon resection with ostomy placement. Patient doing better today Increase strength and energy Good ostomy activity Continue oxygenation continue antibiotics Trial soft diet continue PT/OT encourage ambulation and oobtc Encourage incentive spirometer use CBC and BMP follow continue pain management (2) Hypokalemia Current Visit: Yes Status: Acute 40 meq potassium chloride given today. 2 doses given yesterday current potassium is 3.4 follow labs (3) Abnormal hemoglobin Current Visit: Yes Status: Acute hemoglobin 8.1 today, was 9.1 yesterday low iron levels Venofer IVPB 200 mg daily for 3 days continue to monitor h&h Subjective Patient reports: no new complaints, feels better, pain is less, tolerating liquids well, bowel movement (good ostomy function), afebrile Narrative: Patient states she is doing better today. She does not feel as weak. Has more energy. Ostomy functioning well. Denies fever, chills, night sweats. Denies chest pain or shortness of breath. Denies nausea or vomiting. Patient is tolerating her liquid diet well. Potassium is 3.4 today. White count is slightly elevated at 11.4. Hemoglobin is decreased at 8.0 Objective Vital Signs - Last 8 Hours Temp Pulse Resp BP Pulse Ox 03/09/18 07:32 98.6 F 86 18 142/74 96 03/09/18 05:09 98.3 F 89 16 135/85 97 Intake and Output 03/08/18 03/09/18 03/09/18 23:59 07:59 15:59 Intake Total 220 / 220 800 / 800 Output Total 450 / 450 450 / 450 175 / 175 Balance -230 / -230 350 / 350 -175 / -175 Intake: IV Fluids 100 / 100 100 / 100 Unasyn 3,000 MG In 0.9 % Sodium 100 / 100 100 / 100 Chloride (Mini-Bag +) 100 ML @ 200 mls/hr IVPB Q6H [facility] Rx#: [id number] Oral 120 / 120 700 / 700 Output: Urine 0 / 0 0 / 0 Stool 450 / 450 450 / 450 175 / 175 Other: Meal Dinner Percent of Meal Consumed 25% Stool Consistency loose Stool Color Brown Yellow Green # Urine Diapers 1 2 Weight 119.6 kg Blood Glucose* 119 105 Patient Weight 03/09/18 23:59 Weight 119.6 kg - General physical appearance well developed, well nourished, no distress, obese - Eyes normal ocular movement - ENT atraumatic, normocephalic, CN 2-12 grossly intact - Respiratory normal expansion, normal respiratory effort, clear to auscultation - Abdomen Abdomen: Present: bowel sounds present, soft, non tender - Integumentary no rash, no growths, no abnormal pigmentation - Neurologic normal coordination, normal sensation - Musculoskeletal normal posture - Psychiatric speech is normal, memory intact - Labs 03/09/18 03:16 03/09/18 03:16 Diabetes panel 03/09/18 Range/Units 03:16 Sodium 141 (136-145) mEq/L Potassium 3.4 L (3.5-5.1) mEq/L Chloride 108 H (98-107) mEq/L Carbon Dioxide 29 (23-29) mEq/L BUN 12 (8-23) mg/dL Creatinine 0.67 (0.60-1.20) mg/dL Glucose 103 (70-105) mg/dL Calcium 7.9 L (8.6-10.3) mg/dL Calcium panel 03/09/18 Range/Units 03:16 Calcium 7.9 L (8.6-10.3) mg/dL Pituitary panel 03/09/18 Range/Units 03:16 Sodium 141 (136-145) mEq/L Potassium 3.4 L (3.5-5.1) mEq/L Chloride 108 H (98-107) mEq/L Carbon Dioxide 29 (23-29) mEq/L BUN 12 (8-23) mg/dL Creatinine 0.67 (0.60-1.20) mg/dL Glucose 103 (70-105) mg/dL Calcium 7.9 L (8.6-10.3) mg/dL Adrenal panel 03/09/18 Range/Units 03:16 Sodium 141 (136-145) mEq/L Potassium 3.4 L (3.5-5.1) mEq/L Chloride 108 H (98-107) mEq/L Carbon Dioxide 29 (23-29) mEq/L BUN 12 (8-23) mg/dL Creatinine 0.67 (0.60-1.20) mg/dL Glucose 103 (70-105) mg/dL Calcium 7.9 L (8.6-10.3) mg/dL - VTE Documentation of Mechanical Device: Intermittent pneumatic compression device Consult Discharge Plan - Plan Referrals: Concha Rodriguez DO [Primary Care Provider] - <Oswaldo Garza Azul - Last Filed: 03/09/18 13:14> Date of Encounter: 03/09/18 Objective Vital Signs - Last 8 Hours Temp Pulse Resp BP Pulse Ox 03/09/18 11:06 98.9 F 83 18 127/81 98 03/09/18 07:32 98.6 F 86 18 142/74 96 Intake and Output 03/08/18 03/09/18 03/09/18 23:59 07:59 15:59 Intake Total 220 / 220 800 / 800 340 / 340 Output Total 450 / 450 450 / 450 175 / 175 Balance -230 / -230 350 / 350 165 / 165 Intake: IV Fluids 100 / 100 100 / 100 100 / 100 Unasyn 3,000 MG In 0.9 % Sodium 100 / 100 100 / 100 100 / 100 Chloride (Mini-Bag +) 100 ML @ 200 mls/hr IVPB Q6H [facility] Rx#: [id number] Oral 120 / 120 700 / 700 240 / 240 Output: Urine 0 / 0 0 / 0 0 / 0 Stool 450 / 450 450 / 450 175 / 175 Other: Meal Dinner Breakfast Percent of Meal Consumed 25% 20% Stool Consistency loose Stool Color Brown Yellow Green # Urine Diapers 1 2 Weight 119.6 kg Blood Glucose* 119 105 Patient Weight 03/09/18 23:59 Weight 119.6 kg - Labs 03/09/18 03:16 03/09/18 03:16 Diabetes panel 03/09/18 Range/Units 03:16 Sodium 141 (136-145) mEq/L Potassium 3.4 L (3.5-5.1) mEq/L Chloride 108 H (98-107) mEq/L Carbon Dioxide 29 (23-29) mEq/L BUN 12 (8-23) mg/dL Creatinine 0.67 (0.60-1.20) mg/dL Glucose 103 (70-105) mg/dL Calcium 7.9 L (8.6-10.3) mg/dL Calcium panel 03/09/18 Range/Units 03:16 Calcium 7.9 L (8.6-10.3) mg/dL Pituitary panel 03/09/18 Range/Units 03:16 Sodium 141 (136-145) mEq/L Potassium 3.4 L (3.5-5.1) mEq/L Chloride 108 H (98-107) mEq/L Carbon Dioxide 29 (23-29) mEq/L BUN 12 (8-23) mg/dL Creatinine 0.67 (0.60-1.20) mg/dL Glucose 103 (70-105) mg/dL Calcium 7.9 L (8.6-10.3) mg/dL Adrenal panel 03/09/18 Range/Units 03:16 Sodium 141 (136-145) mEq/L Potassium 3.4 L (3.5-5.1) mEq/L Chloride 108 H (98-107) mEq/L Carbon Dioxide 29 (23-29) mEq/L BUN 12 (8-23) mg/dL Creatinine 0.67 (0.60-1.20) mg/dL Glucose 103 (70-105) mg/dL Calcium 7.9 L (8.6-10.3) mg/dL - Attending Attestation I examined this patient and my medical decision-making was reviewed with the Resident Physician. I agree with the documented findings, disposition and treatment plan as described except to the extent set forth below. I reviewed the above assessment and evaluation and agree with the above plan. Improved appetite. Will advance to soft foods. Replace hypokalemia with oral potassium.
[2018-03-09 10:29] LABS: % Iron Saturation 9 % (15-50); Iron 18 mcg/dL (50-170); Transferrin 146 mg/dL (203-362)
[2018-03-09] MEDS: Iron Sucrose Complex 200 MG in 0.9 % Sodium Chloride 100 ML IVPB SCH (13:25)
[2018-03-10] MEDS: OXYCODONE Oral CONC 10 MG/0.5 ML ORAL.SYG SL PRN ×3 (00:04→21:43)
[2018-03-10] MEDS: Ampicillin/Sulbactam 3,000 MG in 0.9 % Sodium Chloride Mini Bag 100 ML IVPB SCH ×4 (03:40→21:58)
[2018-03-10 04:07] LABS: Basophils % 0.2 %; Eosinophils # 0.2 K/mcL (0.0-0.6); Hematocrit 23.3 % (35.3-44.9); Hemoglobin 7.5 g/dL (11.5-15.4); Immature Granulocytes % 4.4 % (0-4); Lymphocytes # 1.1 K/mcL (0.6-4.6); Lymphocytes % 11.1 %; Mean Corpuscular HGB Conc 32.2 g/dL (31.6-35.5); Mean Corpuscular Hemoglobin 28.7 pg (28.0-33.3); Mean Corpuscular Volume 89.3 fL (83.0-100.0); Mean Platelet Volume 9.7 fL (9.4-12.4); Monocytes # 0.8 K/mcL (0.0-1.3); Neutrophils # 7.4 K/mcL (1.6-8.9); Nucleated Red Blood Cells 0.2 /100 WBC (0); Platelet Count 294 K/mcL (140-400); Red Blood Count 2.61 M/mcL (3.82-4.97); Red Cell Distribution Width 15.7 % (11.5-14.5); Segmented Neutrophils % 74.3 %
[2018-03-10 04:28] LABS: BUN/Creatinine Ratio 13 (6-26); Blood Urea Nitrogen 9 mg/dL (8-23); Calcium 7.8 mg/dL (8.6-10.3); Carbon Dioxide 30 mEq/L (23-29); Chloride 106 mEq/L (98-107); Glucose 94 mg/dL (70-105); Osmolality,Calculated 288 (280-300); Potassium 3.5 mEq/L (3.5-5.1); Sodium 140 mEq/L (136-145); eGFR For Non-African Americans > 60 (> 60)
[2018-03-10] MEDS: *HR* Heparin 5,000 UNIT/ML VIAL SQ SCH ×2 (05:48→16:35)
--- NOTE | 2018-03-10 07:28 | Discharge Summary ---
<Angela Funes - Last Filed: 03/10/18 10:53> Orders not resulted at time of discharge: Pending orders 03/03/18 08:00 Culture,Sputum with Gram Stain [RM] Stat Date of Encounter: 03/10/18 Time of Encounter: 07:30 - Discharge Diagnosis (2) Aspiration pneumonia Priority: Secondary Status: Acute Qualifiers: Aspiration pneumonia type: unspecified Laterality: unspecified laterality Lung location: unspecified part of lung Qualified Code(s): J69.0 - Pneumonitis due to inhalation of food and vomit (3) Large bowel obstruction Priority: Primary Status: Acute Comments: Date of procedure: 03/01/18 Pre-op diagnosis: Colon obstruction Post-op diagnosis: other (#1 colon obstruction secondary to perforated diverticular disease. #2 pelvic abscess #3 colovaginal fistula) Procedure: #1 low anterior resection of the colon #2 drainage of pelvic abscess #3 closure of colovaginal fistula #4 colostomy #5 repair of large incisional hernia Anesthesia: LUDMILA Surgeon: Cristian Braden POD #9 as above (4) Hypokalemia Priority: Secondary Status: Acute (5) Acute respiratory failure Priority: Secondary Status: Acute Qualifiers: Respiratory failure complication: hypoxia Qualified Code(s): J96.01 - Acute respiratory failure with hypoxia (6) DVT prophylaxis Priority: Secondary Status: Acute (7) GISELLA (acute kidney injury) Priority: Secondary Status: Resolved (8) Abnormal hemoglobin Priority: Secondary Status: Acute General Surgery Exam Initial Vital Signs Temp Pulse Resp BP Pulse Ox 98.6 F 89 16 146/86 97 02/28/18 12:29 02/28/18 12:29 02/28/18 12:29 02/28/18 12:29 02/28/18 12:29 Vital Signs Temp Pulse Resp BP Pulse Ox 03/10/18 06:27 98.1 F 76 13 137/84 94 03/10/18 04:12 98.2 F 63 16 131/81 95 03/09/18 18:51 98 F 92 14 128/82 92 03/09/18 15:06 97.9 F 88 18 125/81 95 03/09/18 11:06 98.9 F 83 18 127/81 98 Intake and Output 03/09/18 03/09/18 03/10/18 15:59 23:59 07:59 Intake Total 550 / 550 820 / 820 100 / 100 Output Total 325 / 325 0 / 0 0 / 0 Balance 225 / 225 820 / 820 100 / 100 Intake: IV Fluids 310 / 310 100 / 100 100 / 100 Unasyn 3,000 MG In 0.9 % Sodium 200 / 200 100 / 100 100 / 100 Chloride (Mini-Bag +) 100 ML @ 200 mls/hr IVPB Q6H [facility] Rx#: [id number] Venofer 200 MG In 0.9 % Sodium 110 / 110 Chloride 100 ML @ 200 mls/hr IVPB DAILY [facility] Rx#:[id number] Oral 240 / 240 720 / 720 0 / 0 Output: Urine 0 / 0 0 / 0 0 / 0 Stool 325 / 325 Other: Meal Breakfast Dinner Percent of Meal Consumed 20% 60% Stool Consistency loose # Voids 0 # Urine Diapers 1 0 1 # Bowel Movements 0 # Bowel Movement Diapers 0 Weight 123.4 kg VITAL SIGNS: Reviewed. See [facility] GENERAL: In no apparent distress. HEENT: Normocephalic, atraumatic, pupils are equal and reactive, oropharynx is pink and moist, there is no neck adenopathy or JVD noted. CHEST/RESPIRATORY: The thorax is free from signs of trauma. Lung sounds: clear to auscultation, normal respiratory effort CARDIAC: Regular rate and rhythm. Normal S1 and S2, without murmurs, gallops, or rubs. VASCULAR: generalized edema. 2+ peripheral pulses. ABDOMEN: soft, expected postoperative tenderness, active bowel sounds, functional colostomy INCISION: Surgical incision is clean, dry, and intact. There are no signs of cellulitis or infection noted. WOUNDS/DRAINS: stoma is pink and moist] MUSCULOSKELETAL: generalized weakness noted. Except default Extremities without clubbing, cyanosis or edema] NEUROLOGIC EXAM: [Alert and oriented x 3. Speech normal. Follows commands] PSYCHIATRIC:[Mood normal] SKIN:[No rash or lesions] - Hospital Course Hospital course: Ms. Handley is a 72 year old female medical history of a colon resection where 30 % ever: was resected due to a: perforation during a routine colonoscopy. with complaints of abdominal pain. Barium enema was completed on 03/01/2018 which noted critical areas stenosis impossible fistula at the rectosigmoid junction. She was taken to the operating room on 03/01/2018 where she underwent #1 low anterior resection of the colon #2 drainage of pelvic abscess #3 closure of colovaginal fistula #4 colostomy #5 repair of large incisional hernia, by Dr. Braden. Estimated blood loss during the procedure was 250 mL. Her final pathology noted mesothelial line fibrovascular and adipose tissue consistent with hernia sac, diverticulosis with focal acute and chronic inflammation, lymphoid aggregates and congested vessels, margins benign. Her hospital course was complicated by postoperative ileus which has resolved and acute respiratory failure/aspiration pneumonia For which pulmonology was consulted and recommended Unasyn. Her cultures have remained negative to date and her respiratory status has improved. She did have acute on chronic anemia for which she is receiving Venofer infusions (03/09,,. Her vital signs are stable, laboratory studies have return to baseline, afebrile , and abdominal discomfort is controlled. She is having output in her colostomy. We will begin discharge planning to an inpatient rehab with a follow -up in the office in approximately 2 weeks. - Time Spent with Patient Total time spent providing and/or coordinating discharge services: Greater than 30 minutes (F d/c planning) - Discharge Medications Prescriptions: Ondansetron ODT [Zofran ODT] 4 mg SL Q4HR PRN #30 tab.rapdis PRN Reason: Nausea Amoxicillin/Clavulanate [Augmentin] 875 mg PO BIDWM #14 tablet Docusate Sodium [Colace] 100 mg PO BID #30 capsule HYDROcodone/Acet 7.5/325 mg [[place] 7.5-325 mg] 1 tab PO Q4H PRN 4 Days #20 tablet PRN Reason: Pain Iron SUCROSE Complex [Venofer] 200 mg IV QDPC 1 Days #10 mls Home Medications: Meloxicam 15 mg PO DAILY PRN 02/28/18 [History] Metoprolol [Lopressor] 25 mg PO BID 02/28/18 [History] Amoxicillin/Clavulanate [Augmentin] 875 mg PO BIDWM #14 tablet 03/10/18 [Rx] Docusate Sodium [Colace] 100 mg PO BID #30 capsule 03/10/18 [Rx] HYDROcodone/Acet 7.5/325 mg [[place] 7.5-325 mg] 1 tab PO Q4H PRN 4 Days #20 tablet 03/10/18 [Rx] Iron SUCROSE Complex [Venofer] 200 mg IV QDPC 1 Days #10 mls 03/10/18 [Rx] Ondansetron ODT [Zofran ODT] 4 mg SL Q4HR PRN #30 tab.rapdis 03/10/18 [Rx] Allergies/Adverse Reactions: 3 Allergy/AdvReac Type Severity Reaction Status Date / Time No Known Allergies Allergy Verified 08/30/15 13:20 Date of admission: 02/28/18 22:00 Primary care physician: Elsa Granados Consults: 03/02/18 06:37 Consult to Pulmonology [CONS] Routine Consulting Provider: Pulm Crit Care & Sleep Lupe Reason for Consult: ventilator management Call Completed: No 03/03/18 10:32 Consult to Nutrition [CONS] Routine Comment: Consulting Provider: NUTRITION Reason for Dietary Consult: TPN Start and Manage Other:: Fluid managment per pulmonolgy b/c GISELLA 03/03/18 12:54 Consult to Invasive Line Access Team [CONS] Routine Reason for Consult: Picc Line Insertion Line Type: PICC 03/03/18 15:36 Consult to Wound Care [CONS] Routine Reason for Consult: new ostomy teaching Time Notified: 15:36 Call Completed: No 03/05/18 09:55 Consult to Physical Therapy [CONS] Routine Comment: Evaluate, develop and implement POC Reason for Consult: 72 yo F post op day 4 for assessment of ambulation needs Does patient have active BEDREST order?: No Is patient medically & hemodynamically stable?: Yes Patient assessed for mobility or mobilized this visit?: Yes 03/05/18 12:50 Consult to Occupational Therapy [CONS] Routine Comment: Evaluate, develop and implement POC Reason for Consult: Mobilization and d/c planning Does patient have active BEDREST order?: No Is patient medically & hemodynamically stable?: Yes Patient assessed for mobility or mobilized this visit?: No Consult to Sheltered Workshop Worker [CONS] Routine Reason for SW Consult: D/c Planning. HHC vs ECF per PT/OT recommendations Discharging clinician: Cristian Funes) Anticipated date of discharge: 03/10/18 Labs on day of discharge: Labs from last 24 hours 03/10/18 03/10/18 03/09/18 03:44 03:44 03:16 WBC 10.0 RBC 2.61 L Hgb 7.5 L Hct 23.3 L MCV 89.3 MCH 28.7 MCHC 32.2 RDW 15.7 H Plt Count 294 MPV 9.7 Immature Gran % 4.4 H Seg Neutrophils % 74.3 Lymphocytes % 11.1 Monocytes % 8.0 Eosinophils % 2.0 Basophils % 0.2 Neutrophils # 7.4 Lymphocytes # 1.1 Monocytes # 0.8 Eosinophils # 0.2 Basophils # 0.0 Nucleated RBCs/100 WBC 0.2 H Sodium 140 141 Potassium 3.5 3.4 L Chloride 106 108 H Carbon Dioxide 30 H 29 BUN 9 12 Creatinine 0.71 0.67 Est GFR ( Amer) > 60 > 60 Est GFR (Non-Af Amer) > 60 > 60 BUN/Creatinine Ratio 13 18 Glucose 94 103 POC Glucose Calculated Osmolality 288 292 Calcium 7.8 L 7.9 L Iron 18 L % Saturation 9 L Transferrin 146 L 03/09/18 03/08/18 00:56 11:42 WBC RBC Hgb Hct MCV MCH MCHC RDW Plt Count MPV Immature Gran % Seg Neutrophils % Lymphocytes % Monocytes % Eosinophils % Basophils % Neutrophils # Lymphocytes # Monocytes # Eosinophils # Basophils # Nucleated RBCs/100 WBC Sodium Potassium Chloride Carbon Dioxide BUN Creatinine Est GFR ( Amer) Est GFR (Non-Af Amer) BUN/Creatinine Ratio Glucose POC Glucose 105 H 98 Calculated Osmolality Calcium Iron % Saturation Transferrin - Impressions ITS Impressions Bile Acid Absorption NM 03/01/18 06:55 IMPRESSION: No convincing evidence of bile leak. D/ / 03/01/2018 11:13:17 Zach Lee MD / bcarter Interpreting Provider: Zach Lee MD Barium Enema 03/01/18 11:26 IMPRESSION: Moderate segment high-grade sigmoid narrowing. Neoplasm not excluded. Question of a fistulous tract extending from the sigmoid, incompletely evaluated. The examination was terminated due to patient discomfort. The examination was reviewed with Dr. Braden at 1:25 p.m. on 03/01/2018. D/ / 03/01/2018 14:16:19 Zach Lee MD / vipul Interpreting Provider: Zach Lee MD Chest X-Ray 03/01/18 19:54 IMPRESSION: 1. Patchy densities in the lung bases. Correlate for partial atelectasis or pneumonia. 2. Rounded density in the right lower lung. Probable pulmonary vasculature seen on cross-section. D/ / 03/01/2018 21:06:40 Mike Rodriguez MD / vipul Interpreting Provider: Mike Rodriguez MD Chest X-Ray 03/03/18 07:36 IMPRESSION: Stable exam. D/ / 03/03/2018 08:02:37 Karan Fernández MD / soila Interpreting Provider: Karan Fernández MD Retroperitoneum Ultrasound 03/03/18 15:30 IMPRESSION: Unremarkable ultrasound of the kidneys. Urinary bladder not well visualize. D/ / Pedro Crow / Pedro Crow Interpreting Provider: Pedro Crow - Patient Status Disposition: Transfer Inpatient Rehab Fac Condition: Good Functional capacity at discharge: uses cane/walker Overall status at discharge: patient is not back to baseline - Discharge Instructions Instructions: Iron Sucrose (Injection), Colostomy Care (DC), Colectomy (DC), Colostomy Creation (DC) Follow Up With: Cristian Braden MD [Partnered Physician] - 03/25/18 10:00 am Concha Rodriguez DO [Primary Care Provider] - 04/15/18 1:15 pm Additional Instructions: General Surgical Discharge Instructions 1. No pushing, pulling, or lifting greater than 15 lbs for 4 weeks (depending upon procedure). 2. You may shower beginning today, but no tub baths, soaking, or swimming for 2 weeks. 3. You may resume driving when you are off narcotics and are safe to react in a car and cleared by rehab to do so. 4. Take your at home Meloxicam as directed. You may take hydrocodone/ acetaminophen every 4 hours if needed for discomfort (this was your home dose), and if needed you may take ONE extra-strength Tylenol with the hydrocodone. Do not take more than 4G of Tylennol in 24 hours. Take narcotics as directed. Do not take more narcotics then directed and do not share your narcotics with any other person. Do not drink alcohol while on narcotics. 5. Take stool softeners (Colace) or a water based laxative (Miralax) while taking narcotics. You may hold for loose stools or excessive colostomy output. 6. Report any fevers greater than 100.5F, increase abdominal discomfort, drainage that looks like pus, increased redness or pain at the surgical site, or any vomiting. 7. Report any pain in the calves, shortness of breath, or rapid heartbeat. 8. Follow-up in the office as directed. 9. Take Augmentin as directed. Do not stop without talking to your provider. 10. Continue colostomy care as directed. 11. You will need ONE additional dose of Venofer to be administered on 2017. Resume iron supplements if needed after. - Diet and Activity Activity: as per physical therapy, increase activity as tolerated Diet: advance to your usual diet <Cristian Braden - Last Filed: 03/10/18 15:47> Orders not resulted at time of discharge: Pending orders 03/03/18 08:00 Culture,Sputum with Gram Stain [RM] Stat Date of Encounter: 03/10/18 General Surgery Exam Initial Vital Signs Temp Pulse Resp BP Pulse Ox 98.6 F 89 16 146/86 97 02/28/18 12:29 02/28/18 12:29 02/28/18 12:29 02/28/18 12:29 02/28/18 12:29 - Hospital Course Hospital course: Ms. Handley is a 72 year old female - Time Spent with Patient Total time spent providing and/or coordinating discharge services: Date of admission: 02/28/18 22:00 Primary care physician: Elsa Granados Consults: 03/02/18 06:37 Consult to Pulmonology [CONS] Routine Consulting Provider: Pulm Crit Care & Sleep Lupe Reason for Consult: ventilator management Call Completed: No 03/03/18 10:32 Consult to Nutrition [CONS] Routine Comment: Consulting Provider: NUTRITION Reason for Dietary Consult: TPN Start and Manage Other:: Fluid managment per pulmonolgy b/c GISELLA 03/03/18 12:54 Consult to Invasive Line Access Team [CONS] Routine Reason for Consult: Picc Line Insertion Line Type: PICC 03/03/18 15:36 Consult to Wound Care [CONS] Routine Reason for Consult: new ostomy teaching Time Notified: 15:36 Call Completed: No 03/05/18 09:55 Consult to Physical Therapy [CONS] Routine Comment: Evaluate, develop and implement POC Reason for Consult: 72 yo F post op day 4 for assessment of ambulation needs Does patient have active BEDREST order?: No Is patient medically & hemodynamically stable?: Yes Patient assessed for mobility or mobilized this visit?: Yes 03/05/18 12:50 Consult to Occupational Therapy [CONS] Routine Comment: Evaluate, develop and implement POC Reason for Consult: Mobilization and d/c planning Does patient have active BEDREST order?: No Is patient medically & hemodynamically stable?: Yes Patient assessed for mobility or mobilized this visit?: No Consult to Sheltered Workshop Worker [CONS] Routine Reason for SW Consult: D/c Planning. HHC vs ECF per PT/OT recommendations Labs on day of discharge: Labs from last 24 hours 03/10/18 03/10/18 03/10/18 11:26 07:49 03:44 WBC RBC Hgb Hct MCV MCH MCHC RDW Plt Count MPV Immature Gran % Seg Neutrophils % Lymphocytes % Monocytes % Eosinophils % Basophils % Neutrophils # Lymphocytes # Monocytes # Eosinophils # Basophils # Nucleated RBCs/100 WBC Sodium 140 Potassium 3.5 Chloride 106 Carbon Dioxide 30 H BUN 9 Creatinine 0.71 Est GFR ( Amer) > 60 Est GFR (Non-Af Amer) > 60 BUN/Creatinine Ratio 13 Glucose 94 POC Glucose 90 90 Calculated Osmolality 288 Calcium 7.8 L 03/10/18 03/08/18 03:44 11:42 WBC 10.0 RBC 2.61 L Hgb 7.5 L Hct 23.3 L MCV 89.3 MCH 28.7 MCHC 32.2 RDW 15.7 H Plt Count 294 MPV 9.7 Immature Gran % 4.4 H Seg Neutrophils % 74.3 Lymphocytes % 11.1 Monocytes % 8.0 Eosinophils % 2.0 Basophils % 0.2 Neutrophils # 7.4 Lymphocytes # 1.1 Monocytes # 0.8 Eosinophils # 0.2 Basophils # 0.0 Nucleated RBCs/100 WBC 0.2 H Sodium Potassium Chloride Carbon Dioxide BUN Creatinine Est GFR ( Amer) Est GFR (Non-Af Amer) BUN/Creatinine Ratio Glucose POC Glucose 98 Calculated Osmolality Calcium - Impressions ITS Impressions Bile Acid Absorption NM 03/01/18 06:55 IMPRESSION: No convincing evidence of bile leak. D/ / 03/01/2018 11:13:17 Zach Lee MD / funmi Interpreting Provider: Zach Lee MD Barium Enema 03/01/18 11:26 IMPRESSION: Moderate segment high-grade sigmoid narrowing. Neoplasm not excluded. Question of a fistulous tract extending from the sigmoid, incompletely evaluated. The examination was terminated due to patient discomfort. The examination was reviewed with Dr. Braden at 1:25 p.m. on 03/01/2018. D/ / 03/01/2018 14:16:19 Zach Lee MD / vipul Interpreting Provider: Zach Lee MD Chest X-Ray 03/01/18 19:54 IMPRESSION: 1. Patchy densities in the lung bases. Correlate for partial atelectasis or pneumonia. 2. Rounded density in the right lower lung. Probable pulmonary vasculature seen on cross-section. D/ / 03/01/2018 21:06:40 Mike Rodriguez MD / vipul Interpreting Provider: Mike Rodriguez MD Chest X-Ray 03/03/18 07:36 IMPRESSION: Stable exam. D/ / 03/03/2018 08:02:37 Karan Fernández MD / soila Interpreting Provider: Karan Fernández MD Retroperitoneum Ultrasound 03/03/18 15:30 IMPRESSION: Unremarkable ultrasound of the kidneys. Urinary bladder not well visualize. D/ / Pedro Crow / Pedro Crow Interpreting Provider: Pedro Crow - Attending Attestation I examined this patient and my medical decision-making was reviewed with the Resident Physician. I agree with the documented findings, disposition and treatment plan as described except to the extent set forth below. The patient is seen and evaluated on morning rounds with the resident and the clinical nurse practitioner. She is made a very successful recovery from complete colon obstruction secondary to diverticulitis. She will be placed in rehabilitation in anticipation of going home. I will see her back in 1 week. Cristian Braden MD FACS
--- NOTE | 2018-03-10 07:29 | Physician Discharge Referral ---
ExtendedCare Referral Info Transfer To: [facility] Provider in Charge: Dr. Cristian Braden Provider in Charge after Transfer: Other (ECF/Rehab medical technician) Institutional Level of Care: Skilled - Diagnosis (1) Physical deconditioning Priority: Secondary Status: Acute (2) Aspiration pneumonia Priority: Secondary Status: Acute (3) Large bowel obstruction Priority: Primary Status: Acute Expected Duration of Placement: TBD by rehab. Tc less than 30 days Prognosis: Good Aware of Diagnosis: Patient Aware of Prognosis: Patient - Transfer Medications Prescriptions: Ondansetron ODT [Zofran ODT] 4 mg SL Q4HR PRN #30 tab.rapdis PRN Reason: Nausea Amoxicillin/Clavulanate [Augmentin] 875 mg PO BIDWM #14 tablet Docusate Sodium [Colace] 100 mg PO BID #30 capsule HYDROcodone/Acet 7.5/325 mg [[place] 7.5-325 mg] 1 tab PO Q4H PRN 4 Days #20 tablet PRN Reason: Pain Iron SUCROSE Complex [Venofer] 200 mg IV QDPC 1 Days #10 mls Home Medications: Meloxicam 15 mg PO DAILY PRN 02/28/18 [History] Metoprolol [Lopressor] 25 mg PO BID 02/28/18 [History] Amoxicillin/Clavulanate [Augmentin] 875 mg PO BIDWM #14 tablet 03/10/18 [Rx] Docusate Sodium [Colace] 100 mg PO BID #30 capsule 03/10/18 [Rx] HYDROcodone/Acet 7.5/325 mg [[place] 7.5-325 mg] 1 tab PO Q4H PRN 4 Days #20 tablet 03/10/18 [Rx] Iron SUCROSE Complex [Venofer] 200 mg IV QDPC 1 Days #10 mls 03/10/18 [Rx] Ondansetron ODT [Zofran ODT] 4 mg SL Q4HR PRN #30 tab.rapdis 03/10/18 [Rx] Allergies/Adverse Reactions: 3 Allergy/AdvReac Type Severity Reaction Status Date / Time No Known Allergies Allergy Verified 08/30/15 13:20 - Respiratory Orders Other (Titrate O2 to keep sats >92%) Smoking Cessation: Smoking cessation has been advised. For more information, call the [place] Tobacco Quit Line at 5-385-ZLHH-NOW. - Ancillary Orders May use pressure relief devices daily prn - Advance Directives Living Will: No Power of Sanitation Manager: No Code Status: Full Code - History and Physical History/Physical reviewed & approved w/add comments: See attached - Mobility Orders Ambulate - Rehabiliation Orders Rehab Potential: Good Rehab Orders: Evaluation for Physical Therapy, Evaluation for Occupational Therapy, Evaluation for Speech Therapy - Treatments Skin tear care topically daily PRN per policy List/Other: General Surgical Discharge Instructions 1. No pushing, pulling, or lifting greater than 15 lbs for 4 weeks (depending upon procedure). 2. You may shower beginning today, but no tub baths, soaking, or swimming for 2 weeks. 3. You may resume driving when you are off narcotics and are safe to react in a car and cleared by rehab to do so. 4. Take your at home Meloxicam as directed. You may take hydrocodone/ acetaminophen every 4 hours if needed for discomfort (this was your home dose), and if needed you may take ONE extra-strength Tylenol with the hydrocodone. Do not take more than 4G of Tylennol in 24 hours. Take narcotics as directed. Do not take more narcotics then directed and do not share your narcotics with any other person. Do not drink alcohol while on narcotics. 5. Take stool softeners (Colace) or a water based laxative (Miralax) while taking narcotics. You may hold for loose stools or excessive colostomy output. 6. Report any fevers greater than 100.5F, increase abdominal discomfort, drainage that looks like pus, increased redness or pain at the surgical site, or any vomiting. 7. Report any pain in the calves, shortness of breath, or rapid heartbeat. 8. Follow-up in the office as directed. 9. Take Augmentin as directed. Do not stop without talking to your provider. 10. Continue colostomy care as directed. 11. You will need ONE additional dose of Venofer to be administered on 2017. Resume iron supplements if needed after. - Diet Orders Regular House Supplement per Dietary: Ensure or Boost TID in-between trays CERTIFICATION: I certify that the transfer of the above named patient to an Extended Care Facility is necessary for the continuing treatment of the diagnosis listed. The above information is true and accurate reflection of patient's current condition. Confidential - Redisclosure prohibited without a patient's written consent.
[2018-03-10] MEDS: Pantoprazole 40 MG VIAL IVP SCH (08:01)
[2018-03-10] MEDS: Chlorhexidine Rinse 15 ML MOUTHWASH MM SCH ×2 (08:01→22:00)
[2018-03-10] MEDS: Iron Sucrose Complex 200 MG in 0.9 % Sodium Chloride 100 ML IVPB SCH (10:20)
[2018-03-11] MEDS: Ampicillin/Sulbactam 3,000 MG in 0.9 % Sodium Chloride Mini Bag 100 ML IVPB SCH ×3 (03:41→15:44)
[2018-03-11] MEDS: OXYCODONE Oral CONC 10 MG/0.5 ML ORAL.SYG SL PRN ×2 (04:25→13:43)
[2018-03-11] MEDS: *HR* Heparin 5,000 UNIT/ML VIAL SQ SCH ×2 (06:20→18:43)
[2018-03-11] MEDS: Pantoprazole 40 MG VIAL IVP SCH (09:15)
[2018-03-11] MEDS: Iron Sucrose Complex 200 MG in 0.9 % Sodium Chloride 100 ML IVPB SCH (09:16)
[2018-03-11] MEDS: Chlorhexidine Rinse 15 ML MOUTHWASH MM SCH (09:17)
--- NOTE | 2018-03-11 14:32 | Event Note ---
Date of Encounter: 03/11/18 Time of Encounter: 14:31 D/c planning per SW. Patient has been accepted to ECF, but authorization is pending. OK to d/c when able per SW.
[2018-03-11 15:37] VITALS: BP 142/85
== END 2018-03-11 19:06 | DRG 329 ==
LOC: EMEROO 12:27 → 3ANU 22:00 → ICNU 03-01 20:29 → 3ANU 03-05 12:41
PROVIDERS: ADMIT Surgery; ATTEND Surgery